=== PATIENT | female | born 1990 | race Caucasian/White ===

== ENCOUNTER 2016-08-11 12:17 | Outpatient (CLI) | payer MEDICAID ==
--- NOTE | 2016-08-11 13:38 | Non Stress Test Report ---
Non Stress Test Datetime Report Generated by CPN: 08/11/2016 13:38 INDICATION Indication for Study: Ordered by Provider Indication for Study (NST) Other: Repeat NST MONITORING Monitor Explained: Monitor Explained; Test Explained; Patient Verbalized Understanding Time on Monitor: 08/11/2016 12:31 Time off Monitor: 08/11/2016 13:24 NST Duration: 53 NST INTERVENTIONS NST Interventions: PO Hydration; Reposition Patient Physician Notified NST: J .Corbett CNM BABY A: [id number] BABY A Movement : Present Contraction Frequency : x1 FHR Baseline : 140 Accelerations : 15X15 Decelerations : None Variability : Moderate 6-25bpm NST Review: Meets Criteria for Reactive NST NST Review and Verified By : Kristine Kerns RN NST Results: Reactive NST REPORT Report Trigger: Send Report
== END 2016-08-11 13:35 | disposition home or self-care (01) ==
LOC: LC 12:17
PROVIDERS: ATTEND Obstetrics & Gynecology
PROC: 4A1HXCZ Monitoring of Products of Conception, Cardiac Rate, External Approach (ICD-10-PCS; principal; 2016-08-11)
DX: O47.03 False labor before 37 completed weeks of gestation, third trimester (principal); Z3A.34 34 weeks gestation of pregnancy
CPT/HCPCS: 59025

== ENCOUNTER 2016-08-22 16:58 | Outpatient (CLI) | payer MEDICAID ==
--- NOTE | 2016-08-22 17:54 | Non Stress Test Report ---
Non Stress Test Datetime Report Generated by CPN: 08/22/2016 17:54 DEMOGRAPHIC EGA NST: 35.5 INDICATION Indication for Study: Ordered by Provider; Other MONITORING Monitor Explained: Monitor Explained; Test Explained; Patient Verbalized Understanding Time on Monitor: 08/22/2016 17:12 NST INTERVENTIONS NST Interventions: PO Hydration; Reposition Patient Physician Notified NST: Dr. Santoro BABY A: [id number] BABY A Movement : Present Contraction Frequency : irregular FHR Baseline : 140 Accelerations : 15X15 Decelerations : None Variability : Moderate 6-25bpm NST Review: Meets Criteria for Reactive NST NST Review and Verified By : Luis De Anda RNC NST Results: Reactive NST REPORT Report Trigger: Send Report
== END 2016-08-22 17:53 | disposition home or self-care (01) ==
LOC: LC 16:58
PROVIDERS: ATTEND Student in an Organized Health Care Education/Training Program
PROC: 4A1HXCZ Monitoring of Products of Conception, Cardiac Rate, External Approach (ICD-10-PCS; principal; 2016-08-22)
DX: O47.03 False labor before 37 completed weeks of gestation, third trimester (principal); Z3A.35 35 weeks gestation of pregnancy
CPT/HCPCS: 59025

== ENCOUNTER 2016-08-26 12:23 | Outpatient (CLI) | payer MEDICAID ==
--- NOTE | 2016-08-26 13:55 | Non Stress Test Report ---
Non Stress Test Datetime Report Generated by CPN: 08/26/2016 13:55 DEMOGRAPHIC EGA NST: 36.2 INDICATION Indication for Study: Other Indication for Study (NST) Other: Repeat NST VITAL SIGNS Temperature - NST: 98.1 Pulse - NST: 67 RESP - NST: 19 NBPSYS NST: 132 NBPDIA NST: 63 MONITORING Monitor Explained: Monitor Explained; Test Explained; Patient Verbalized Understanding Time on Monitor: 08/26/2016 13:00 Time off Monitor: 08/26/2016 13:37 NST Duration: 37 NST INTERVENTIONS NST Interventions: None Physician Notified NST: H Frantz, CNM BABY A Movement : Present Contraction Frequency : 2-15 FHR Baseline : 135 Accelerations : 15X15 Decelerations : None Variability : Moderate 6-25bpm NST Review: Meets Criteria for Reactive NST NST Review and Verified By : Talita Zuniga RNC NST Results: Reactive NST REPORT Report Trigger: Send Report
--- NOTE | 2016-08-26 14:01 | L&D Flow Sheet ---
LD Flowsheet Datetime Report Generated by CPN: 08/26/2016 14:00 Datetime: 08/26/2016 13:35 Pain Scale: 2 (Brenda Scott, CUATE) Pain Presence: Intermittent (Brenda Scott, RN) Pain Type: Contraction (Brendabuffy Scott, RN) Pain Location: Abdomen; Back (Brenda Scott, CUATE) Pain Relief Measures: Comfort Measures (Brenda Scott, CUATE) Pain Coping: Talking Through Contractions; Breathing Through Contractions (Brendabuffy Scott, RN) LaborFlag: OB Triage (QS system process) Datetime: 08/26/2016 13:30 Monitor Mode: External; Palpation (Brenda Taynton, RN) Frequency (min): 2-15 (Brenda Taynton, RN) Quality: Mild/Moderate (Brenda Taynton, RN) Duration (sec): 60-120 (Brenda Taynton, RN) Resting Tone (Palpate): Relaxed (Brenda Taynton, RN) Monitor Mode: External US (Brenda Taynton, RN) FHR Baseline Rate : 150 (Brenda Taynton, RN) Variability: Moderate 6-25 bpm (Brenda Taynton, RN) Accelerations: 15X15 (Brenda Taynton, RN) Decelerations: None (Brenda Taynton, RN) Datetime: 08/26/2016 13:27 NBP Sys/Sandrine/Mean (mmHg): 132 (QS system process) : 63 (QS system process) : 90 (QS system process) Pulse: 67 (QS system process) LaborFlag: OB Triage (QS system process) Datetime: 08/26/2016 13:06 NBP Sys/Sandrine/Mean (mmHg): 121 (QS system process) : 78 (QS system process) : 94 (QS system process) Pulse: 76 (QS system process) LaborFlag: OB Triage (QS system process) Datetime: 08/26/2016 13:00 Monitor Mode: External; Palpation (Brenda Taynton, RN) Frequency (min): x2 (Brenda Taynton, RN) Quality: Mild/Moderate (Brenda Taynton, RN) Duration (sec): 70-100 (Brenda Taynton, RN) Resting Tone (Palpate): Relaxed (Brenda Taynton, RN) Monitor Mode: External US (Brenda Taynton, RN) FHR Baseline Rate : 150 (Brenda Taynton, RN) Variability: Moderate 6-25 bpm (Brenda Taynton, RN) Accelerations: None (Brenda Taynton, RN) Decelerations: None (Brenda Taynton, RN) Datetime: 08/26/2016 12:50 Pain Scale: 1 (Brenda Taynton, RN) Pain Presence: Intermittent (Brenda Scott RN) Pain Type: Contraction (Brenda Scott RN) Pain Location: Abdomen; Back (Brenda Scott RN) Pain Relief Measures: Comfort Measures (Brenda Scott RN) Pain Coping: Talking Through Contractions; Breathing Through Contractions (Brenda Scott RN) Vaginal Bleeding: None (Brenda Scott RN) Level of Consciousness: Fully Conscious (Brenda Scott RN) DTR's/Clonus: DTRs 2+; No Clonus (Brenda Scott RN) Headache: Denies (Brenda Scott RN) Breath Sounds, Left: Clear and Equal (Brenda Scott RN) Breath Sounds, Right: Clear and Equal (Brenda Scott RN) Nausea/Vomiting: Denies (Brenda Scott RN) RUQ Epigastric Pain: Denies (Brenda Scott RN) Instructional Method: Demo; Verbal; Written; Patient Instructed; Verbalized Understanding (Brenda Scott RN) Plan of Care: Plan of Care Discussed (Brenda Scott RN) Unit Routine: [place] to Room; Call Lua; Bed (Brenda Scott RN) Related: Common Discomforts of (Brenda Scott RN) LaborFlag: OB Triage (QS system process) Datetime: 08/26/2016 12:46 NBP Sys/Sandrine/Mean (mmHg): 111 (QS system process) : 74 (QS system process) : 88 (QS system process) Pulse: 73 (QS system process) LaborFlag: OB Triage (QS system process)
== END 2016-08-26 14:10 | disposition home or self-care (01) ==
LOC: LC 12:23
PROVIDERS: ATTEND Obstetrics & Gynecology
PROC: 4A1HXCZ Monitoring of Products of Conception, Cardiac Rate, External Approach (ICD-10-PCS; principal; 2016-08-26)
DX: O47.03 False labor before 37 completed weeks of gestation, third trimester (principal); Z3A.36 36 weeks gestation of pregnancy
CPT/HCPCS: 59025

== ENCOUNTER 2016-09-02 15:01 | Outpatient (CLI) | payer MEDICAID ==
--- NOTE | 2016-09-02 15:54 | Non Stress Test Report ---
Non Stress Test Datetime Report Generated by CPN: 09/02/2016 15:54 DEMOGRAPHIC EGA NST: 37.2 INDICATION Indication for Study: Substance Abuse MONITORING Monitor Explained: Monitor Explained; Test Explained Time on Monitor: 09/02/2016 15:15 Time off Monitor: 09/02/2016 15:51 NST Duration: 36 NST INTERVENTIONS NST Interventions: PO Hydration; Reposition Patient Physician Notified NST: A Emmel CNM BABY A: [id number] BABY A Movement : Present Contraction Frequency : occassional FHR Baseline : 135 Accelerations : 15X15 Decelerations : None Variability : Moderate 6-25bpm NST Review: Meets Criteria for Reactive NST NST Review and Verified By : Lala CRUZ NST Results: Reactive NST REPORT Report Trigger: Send Report
--- NOTE | 2016-09-02 16:00 | L&D Flow Sheet ---
LD Flowsheet Datetime Report Generated by CPN: 09/02/2016 16:00 Datetime: 09/02/2016 15:17 Vital Signs NBP Sys/Sandrine/Mean (mmHg): 130 (QS system process) : 69 (QS system process) : 93 (QS system process) Pulse: 92 (QS system process) Communication LaborFlag: OB Triage (QS system process)
== END 2016-09-02 16:00 | disposition home or self-care (01) ==
LOC: LC 15:01
PROVIDERS: ATTEND Obstetrics & Gynecology
PROC: 4A1HXCZ Monitoring of Products of Conception, Cardiac Rate, External Approach (ICD-10-PCS; principal; 2016-09-02)
DX: O99.323 Drug use complicating pregnancy, third trimester (principal); Z3A.37 37 weeks gestation of pregnancy
CPT/HCPCS: 59025

== ENCOUNTER 2016-09-06 14:33 | Outpatient (CLI) | payer MEDICAID ==
--- NOTE | 2016-09-06 15:35 | Non Stress Test Report ---
Non Stress Test Datetime Report Generated by CPN: 09/06/2016 15:34 DEMOGRAPHIC Test Number: 5 EGA NST: 37.6 INDICATION Indication for Study: Ordered by Provider MONITORING Monitor Explained: Monitor Explained; Test Explained; Patient Verbalized Understanding Time on Monitor: 09/06/2016 14:43 Time off Monitor: 09/06/2016 15:24 NST Duration: 41 NST INTERVENTIONS NST Interventions: PO Hydration; Reposition Patient Physician Notified NST: P. Lin, CNM BABY A Movement : Present Contraction Frequency : Occasional FHR Baseline : 125 Accelerations : 15X15 Decelerations : None Variability : Moderate 6-25bpm NST Review: Meets Criteria for Reactive NST NST Review and Verified By : Luis De Anda RNC NST Results: Reactive NST REPORT Report Trigger: Send Report
== END 2016-09-06 15:33 | disposition home or self-care (01) ==
LOC: LC 14:33
PROVIDERS: ATTEND Obstetrics & Gynecology
DX: Z34.93 Encounter for supervision of normal pregnancy, unspecified, third trimester (principal); Z3A.37 37 weeks gestation of pregnancy
CPT/HCPCS: 59025

== ENCOUNTER 2016-09-16 14:51 | Outpatient (CLI) | payer MEDICAID ==
--- NOTE | 2016-09-16 15:49 | Non Stress Test Report ---
Non Stress Test Datetime Report Generated by CPN: 09/16/2016 15:48 DEMOGRAPHIC EGA NST: 39.2 INDICATION Indication for Study: Ordered by Provider Indication for Study (NST) Other: Repeat MONITORING Monitor Explained: Monitor Explained; Test Explained; Patient Verbalized Understanding Time on Monitor: 09/16/2016 15:08 Time off Monitor: 09/16/2016 15:42 NST Duration: 34 NST INTERVENTIONS NST Interventions: PO Hydration Physician Notified NST: A. Emmel CNM BABY A: [id number] BABY A Movement : Present Accelerations : 15X15 Decelerations : None Variability : Moderate 6-25bpm NST Review: Meets Criteria for Reactive NST NST Review and Verified By : Deann Gayle, RN NST Results: Reactive NST REPORT Report Trigger: Send Report
== END 2016-09-16 15:57 | disposition home or self-care (01) ==
LOC: LC 14:51
PROVIDERS: ATTEND Student in an Organized Health Care Education/Training Program
PROC: 4A1HXCZ Monitoring of Products of Conception, Cardiac Rate, External Approach (ICD-10-PCS; principal; 2016-09-16)
DX: O47.1 False labor at or after 37 completed weeks of gestation (principal); Z3A.39 39 weeks gestation of pregnancy
CPT/HCPCS: 59025

== ENCOUNTER 2016-09-19 12:39 | Outpatient (CLI) | payer MEDICAID ==
[2016-09-19 13:27] LABS: APPEARANCE,URINE CLOUDY; BILIRUBIN,URINE NEGATIVE (NEGATIVE); GLUCOSE, URINE NEGATIVE (NEGATIVE); KETONES,URINE NEGATIVE (NEGATIVE); LEUKOCYTE ESTERASE,URINE LARGE (NEGATIVE); NITRITE,URINE NEGATIVE (NEGATIVE); PROTEIN,URINE 30 mg/dL (NEGATIVE); URINE SPECIFIC GRAVITY 1.024; UROBILINOGEN,URINE NEGATIVE mg/dL (<2.0)
--- NOTE | 2016-09-19 14:00 | L&D Flow Sheet ---
LD Flowsheet Datetime Report Generated by CPN: 09/19/2016 14:00 Datetime: 09/19/2016 13:40 NBP Sys/Sandrine/Mean (mmHg): 124 (QS system process) : 71 (QS system process) : 91 (QS system process) Pulse: 67 (QS system process) LaborFlag: OB Triage (QS system process) Datetime: 09/19/2016 13:09 NBP Sys/Sandrine/Mean (mmHg): 134 (QS system process) : 75 (QS system process) : 99 (QS system process) Pulse: 77 (QS system process) Pain Scale: 3 (Wendy Romero, CUATE) Pain Presence: Intermittent (Wendy Romero, CUATE) Pain Type: Contraction; Pressure (Annotations: CONSTANT PRESSURE) (Wendy Romero, CUATE) Pain Location: Abdomen; Back (Wendy Romero, RN) Pain Goal: 1 (Wendy Romero, CUATE) Pain Coping: Breathing Through Contractions (Wendy Romero, CUATE) Vaginal Bleeding: None (Wendy Romero, CUATE) LaborFlag: OB Triage (QS system process)
[2016-09-19 14:01] LABS: URINE BARBITURATES SCREEN NEGATIVE; URINE OPIATES LOW NEGATIVE; URINE PHENCYCLIDINE SCREEN NEGATIVE
[2016-09-19 14:08] LABS: URINE METHADONE SCREEN UNCONFIRMED POSITIVE
--- NOTE | 2016-09-19 16:00 | L&D Flow Sheet ---
LD Flowsheet Datetime Report Generated by CPN: 09/19/2016 16:00 Datetime: 09/19/2016 15:39 NBP Sys/Sandrine/Mean (mmHg): 131 (QS system process) : 79 (QS system process) : 100 (QS system process) Pulse: 65 (QS system process) LaborFlag: Antepartum (QS system process) Datetime: 09/19/2016 15:15 Stage of : Antepartum (Wendy Romero, RN) Respirations: 18 (Wendy Romreo RN) Monitor Mode: External (Wendy Romero RN) Frequency (min): IRREG (Wendy Romero, CUATE) Quality: Mild (Wendy Romero RN) Duration (sec): 55-70 (Wendy Romero, CUATE) Resting Tone (Palpate): Relaxed (Wendy Romero, CUATE) Monitor Mode: External US (Wendy Romero RN) FHR Baseline Rate : 140 (Wendy Romero RN) FHR Baseline Changes: No Baseline Change (Wendy Romero, CUATE) Variability: Moderate 6-25 bpm (Wendy Romero, CUATE) Accelerations: 15X15 (Wendy Romero, CUATE) Decelerations: None (Wendy Romero, CUATE) Pain Relief Measures: Comfort Measures (Wendy Romero, CUATE) Pain Coping: Talking Through Contractions; Breathing Through Contractions (Wendy Romero, CUATE) Patient Position/Activity: Right Tilt; Low Fowlers (Wendy Romero, CUATE) Comfort Measures: Family Support (Wendy Romero, CUATE) Communication: RN Reviewed Strip (Wendy Romero RN) LaborFlag: Antepartum (QS system process) Datetime: 09/19/2016 15:09 NBP Sys/Sandrine/Mean (mmHg): 130 (QS system process) : 79 (QS system process) : 97 (QS system process) Pulse: 77 (QS system process) LaborFlag: OB Triage (QS system process) Datetime: 09/19/2016 14:52 Stage of : OB Triage (Wendy Romero RN) Provider Reviewed Strip: Yes (Wendy Romero RN) Communication: Report Given to @ Natan HENDRICKS CNM (Wendy Romero, CUATE) Notification Reason: Status; Labor Status; Uterine Activity (Wendy Romero RN) Datetime: 09/19/2016 14:48 Dilatation (cm): 4.0 (Wendy Romero RN) Effacement (%): 80 (Wendy Romero, RN) Station: -3 (Wendy Romero, RN) Exam by: KORY ROMERO RN (Wendy Romero, RN) Vaginal Bleeding: None (Wendy Romero RN) Cervix, Consistency: Soft (Wendy Romero, RN) Cervix, Position: Posterior (Wendy Romero, RN) Procedures: Sterile Vag Exam (Wendy Romero, CUATE) Communication: RN at Bedside; RN Reviewed Strip (Wendy Romero RN) Datetime: 09/19/2016 14:44 Stage of : OB Triage (Wendy Romero RN) Respirations: 18 (Wendy Romero RN) Monitor Mode: External (Wendy Romero RN) Monitor Interventions for UA: [place] Adjusted (Wendy Romero RN) Frequency (min): 5-10 (Wendy Romero RN) Quality: Mild (Wendy Romero RN) Duration (sec): 55-70 (Wendy Romero, CUATE) Resting Tone (Palpate): Relaxed (Wendy Romero RN) Monitor Mode: External US (Wendy Romero RN) Monitor Interventions for FHR: Ultrasound Adjusted (Wendy Romero RN) FHR Baseline Rate : 130 (Wendy Romero RN) FHR Baseline Changes: No Baseline Change (Wendy Romero RN) Variability: Moderate 6-25 bpm (Wendy Romero RN) Decelerations: Prolonged (Wendy Romero, CUATE) Actions for Decelerations: Side to Side; Sterile Vaginal Exam (Wendy Romero RN) Pain Scale: 3 (Wendy Romero RN) Pain Presence: Intermittent (Wendy Romero RN) Pain Type: Contraction; Pressure (Wendy Romero RN) Pain Location: Abdomen; Back (Wendy Romero RN) Pain Relief Measures: Comfort Measures (Wendy Romero RN) Pain Coping: Breathing Through Contractions (Wendy Romero RN) Patient Position/Activity: Right Lateral; Low Fowlers (Wendy Romero RN) Comfort Measures: Family Support (Wendy Romero RN) Communication: RN at Bedside; RN Reviewed Strip (Wendy Romero RN) LaborFlag: OB Triage (QS system process) Datetime: 09/19/2016 14:39 NBP Sys/Sandrine/Mean (mmHg): 131 (QS system process) : 75 (QS system process) : 97 (QS system process) Pulse: 82 (QS system process) LaborFlag: Antepartum (QS system process) Datetime: 09/19/2016 14:15 Stage of : Antepartum (Wendy Romero RN) Respirations: 18 (Wendy Romero RN) Monitor Mode: External (Wendy Romero RN) Frequency (min): IRREG (Wendy Romero RN) Quality: Mild (Wendy Romero RN) Duration (sec): 50-65 (Wendy Romero RN) Resting Tone (Palpate): Relaxed (Wendy Romero, CUATE) Monitor Mode: External US (Wendy Romero RN) FHR Baseline Rate : 135 (Wendy Romero RN) FHR Baseline Changes: No Baseline Change (Wendy Romero RN) Variability: Moderate 6-25 bpm (Wendy Romero RN) Accelerations: None (Wendy Romero RN) Decelerations: None (Wendy Romero RN) Pain Relief Measures: Comfort Measures (Wendy Romero RN) Pain Coping: Talking Through Contractions; Breathing Through Contractions (Wendy Romero RN) Patient Position/Activity: Left Tilt; Low Fowlers (Wendy Romero, CUATE) Comfort Measures: Family Support (Wendy Romero RN) Communication: RN at Bedside; RN Reviewed Strip (Wendy Romero RN) LaborFlag: Antepartum (QS system process) Datetime: 09/19/2016 14:11 NBP Sys/Sandrine/Mean (mmHg): 100 (QS system process) : 70 (QS system process) : 81 (QS system process) Pulse: 76 (QS system process) LaborFlag: Antepartum (QS system process)
[2016-09-19] MEDS ORDERED: ONDANSETRON 4 MG TAB.RAPDIS ONE (16:08)
[2016-09-19] MEDS ORDERED: ONDANSETRON 4 MG TAB.RAPDIS PO ONE (16:08)
[2016-09-19] MEDS ORDERED: HYDROXYZINE PAMOATE 50 MG CAPSULE PO ONE (16:08)
[2016-09-19] MEDS ORDERED: HYDROXYZINE PAMOATE 50 MG CAPSULE ONE (17:12)
== END 2016-09-19 17:18 | disposition home or self-care (01) ==
LOC: LC 12:39
PROVIDERS: ATTEND Obstetrics & Gynecology
PROC: 4A1HXCZ Monitoring of Products of Conception, Cardiac Rate, External Approach (ICD-10-PCS; principal; 2016-09-19)
DX: O47.1 False labor at or after 37 completed weeks of gestation (principal); Z3A.39 39 weeks gestation of pregnancy
CPT/HCPCS: 59025; 81005; 80307; J3490; S0119

== ENCOUNTER 2016-09-21 07:24 | Inpatient (IN) | payer MEDICAID ==
--- NOTE | 2016-09-21 08:00 | L&D Flow Sheet ---
LD Flowsheet Datetime Report Generated by CPN: 09/21/2016 08:00 Datetime: 09/21/2016 07:52 Monitor Interventions for UA: [place] Adjusted (Prince Abel, RN) Datetime: 09/21/2016 07:51 Communication Comments: [place] PIPE TESTER at bedside to answer pt questions (Prince Abel, RN) Datetime: 09/21/2016 07:45 Frequency (min): 5min (Prince Roman RN) Pain Scale: 4 (Prince Roman RN) Pain Presence: Intermittent (Prince Roman RN) Pain Type: Contraction (Prince Roman RN) Pain Location: Abdomen (Prince Roman RN) Pain Relief Measures: Comfort Measures (Prince Roman RN) Pain Coping: Breathing Through Contractions (Prince Roman RN) Vaginal Bleeding: None (Prince Roman RN) Dilatation (cm): 3-4 cms (Prince Roman RN) Effacement: >80_ effaced (Prince Roman RN) Station: minus 1 to 0 (Prince Roman RN) Consistency: Soft (Prince Roman RN) Position: Midposition (Prince Roman RN) Total Pike's Score: 10 (QS system process) : 9-14 = Usually no failure for induction (QS system process) Level of Consciousness: Fully Conscious (Prince Roman RN) DTR's/Clonus: DTRs 2+; No Clonus (Prince Roman RN) Headache: Denies (Prince Roman RN) Breath Sounds, Left: Clear and Equal (Prince Roman RN) Breath Sounds, Right: Clear and Equal (Prince Roman RN) Nausea/Vomiting: Denies (Prince Roman RN) RUQ Epigastric Pain: Denies (Prince Roman RN) Patient Position/Activity: Left Tilt (Prince Roman RN) Comfort Measures: Breathing/Relaxation (Prince Roman RN) I/O Interventions: Clear Liquids Given; Up to BR (Prince Roman RN) Instructional Method: Demo; Verbal; Patient Instructed; Family/Support Person Instructed; Verbalized Understanding (Prince Roman RN) Plan of Care: Plan of Care Discussed; Labor (Prince Roman RN) Unit Routine: [place] to Room; Call Lua; Bed; Visiting Policy; Waiting Areas; Infant Security; Phone/Cell Phone Use; Photography; Unit Personnel; Handwashing; Flu/Illness Precautions; Monitoring; IV Pumps; Safety/Fall Risk Prevention; Diet/Nutrition Services; Bathroom Privileges; Routine Time Outs; Medications (Prince Roman RN) Labor/Induction: Labor Stages (Prince Roman RN) Pain Management: Pain Scale/Goals; Comfort Measures (Prince Roman RN) Related: Common Discomforts of ; Maternal Physical Changes; Maternal Emotional Changes; Nutrition; Hydration; Activity and Rest (Prince Roman RN) LaborFlag: Antepartum (QS system process) Datetime: 09/21/2016 07:44 I/O Interventions: Popsicle (Prince Roman RN) Datetime: 09/21/2016 07:42 Dilatation (cm): 4.0 (Prince Roman RN) Effacement (%): 100 (Prince Roman RN) Station: -1 (Prince Roman RN) Exam by: Michael Roman RN (Prince Roman RN) Vaginal Bleeding: None (Prince Roman RN) Cervix, Consistency: Soft (Prince Roman RN) Cervix, Position: Midposition (Prince Roman RN) Datetime: 09/21/2016 07:39 NBP Sys/Sandrine/Mean (mmHg): 133 (QS system process) : 86 (QS system process) : 105 (QS system process) Pulse: 86 (QS system process) LaborFlag: Antepartum (QS system process)
--- NOTE | 2016-09-21 08:19 | Non Stress Test Report ---
Non Stress Test Datetime Report Generated by CPN: 09/21/2016 08:19 DEMOGRAPHIC EGA NST: 40.0 EGA NST: 39.5 INDICATION Indication for Study: Ordered by Provider Indication for Study: Other Indication for Study (NST) Other: LABOR CHECK MONITORING Monitor Explained: Monitor Explained; Test Explained; Patient Verbalized Understanding Monitor Explained: Monitor Explained; Test Explained; Patient Verbalized Understanding Time on Monitor: 09/21/2016 07:38 Time on Monitor: 09/19/2016 13:09 Time off Monitor: 09/21/2016 08:10 NST Duration: 32 NST INTERVENTIONS NST Interventions: PO Hydration NST Interventions: Reposition Patient NST Interventions Other: PROLONGED DECEL X 1; RESOLVED WITH POSITION CHANGE Physician Notified NST: HURD Physician Notified NST: DR ANAT REVIEWED STRIP BABY A Movement : Present Movement : Present Contraction Frequency : 5-6 Contraction Frequency : IRREG FHR Baseline : 135 FHR Baseline : 135 Accelerations : 15X15 Accelerations : 15X15 Decelerations : None Decelerations : Prolonged Variability : Moderate 6-25bpm Variability : Moderate 6-25bpm NST Review: Meets Criteria for Reactive NST NST Review: Meets Criteria for Reactive NST NST Review and Verified By : CUATE VarelaT Results: Reactive NST Results: Reactive NST REPORT Report Trigger: Send Report
[2016-09-21 08:31] LABS: APPEARANCE,URINE SLIGHTLY-CLOUDY; BILIRUBIN,URINE NEGATIVE (NEGATIVE); GLUCOSE, URINE NEGATIVE (NEGATIVE); KETONES,URINE NEGATIVE (NEGATIVE); LEUKOCYTE ESTERASE,URINE LARGE (NEGATIVE); NITRITE,URINE NEGATIVE (NEGATIVE); PROTEIN,URINE NEGATIVE (NEGATIVE); URINE SPECIFIC GRAVITY 1.005; UROBILINOGEN,URINE NEGATIVE mg/dL (<2.0)
[2016-09-21 08:47] LABS: URINE BARBITURATES SCREEN NEGATIVE; URINE OPIATES LOW NEGATIVE; URINE PHENCYCLIDINE SCREEN NEGATIVE
[2016-09-21] MEDS ORDERED: RINGERS SOLUTION,LACTATED 1,000 ML IV ONE (08:49)
[2016-09-21] MEDS ORDERED: RINGERS SOLUTION,LACTATED 1,000 ML IV PRN (08:49)
[2016-09-21 08:54] LABS: URINE METHADONE SCREEN UNCONFIRMED POSITIVE
--- NOTE | 2016-09-21 09:10 | Operative Report ---
Operative Report DATE OF SURGERY: 09/21/16 PREOPERATIVE DIAGNOSIS: Repeat to prevent risk of uterine rupture POSTOPERATIVE DIAGNOSIS: Same OPERATION: Repeat via low transverse uterine incision SURGEON: YAIR HURD ANESTHESIA: Epidural TISSUE REMOVED OR ALTERED: Placenta COMPLICATIONS: None ESTIMATED BLOOD LOSS: 2 50 mL INTRAOPERATIVE FINDINGS: Viable male 7 lbs. 10 oz. Apgars 8 and 9 PROCEDURE: Patient was taken to the OR and placed in supine position after her spinal anesthesia. She is prepared and draped in sterile fashion. Delgado was placed for drainage of the bladder. Low transverse incision was made and carried down the level of the fascia. The fascial incision was made with knife and extended bilaterally with curved Jenkins scissors. The fascia was off the rectus muscles using sharp and blunt dissection. The rectus muscles are in the midline. The peritoneum was entered without incident. Bladder blade was placed in uterine segment was identified. A low transverse incision was made creating a bladder flap. Bladder blade was placed low transverse uterine incision was made with the knife and extended with fingertips. The baby was delivered with some fundal pressure. Mouth and nose were suctioned free. The cord is doubly clamped and cut. Baby is passed off to the swimming pool cleaner in attendance. The placenta was manually extracted with trailing membranes. The uterus was externalized wrapped in a moist lap sponge. Uterine contents wiped free. Uterus was closed with a running locking layer of 0 chromic suture using the second layer to imbricate the first completing a double layer closure of the uterus. The serosa was closed with a running 2-0 chromic stitch. The pelvis was irrigated and suctioned free of fluid the uterus was replaced in the abdomen. The abdominal wall peritoneum was closed with running 2-0 chromic stitch. Fascia was closed with a running 0 Vicryl in 2 segments. Jade's layer was brought together with 0 plain gut stitch and the skin was closed with running subcuticular 4-0 undyed Vicryl stitch. The wound was dressed mother and baby did well.
[2016-09-21] MEDS ORDERED: EPHEDRINE SULFATE INJ 50 MG/1 ML AMPULE ONE (09:30)
[2016-09-21] MEDS ORDERED: FENTANYL/BUPIVACAINE/NS/PF 0 MCG/0 ML RTUINJ EPI ONE (09:30)
[2016-09-21] MEDS ORDERED: LIDOCAINE 1% INJ-PF (10 MG/ML) 30 ML SDV ONE (09:30)
[2016-09-21] MEDS ORDERED: MISOPROSTOL 0.2 MG TABLET ONE (09:30)
[2016-09-21] MEDS ORDERED: BUPIVACAINE HCL 0.25 % INJ/PF (2.5 MG/1 ML) 30 ML VIAL ONE (09:31)
[2016-09-21] MEDS ORDERED: OXYTOCIN/NORMAL SALINE 20 UNIT/1,000 ML RTUINJ ONE (09:31)
[2016-09-21 09:44] LABS: ABSOLUTE LYMPHOCYTES (AUTO) 1.8 10^3/uL (0.5-4.7); ABSOLUTE NEUT (AUTO) 8.7 10^3/uL (1.7-8.2); BASOPHILS % (AUTO) 0.3 % (0-2); EOSINOPHILS % (AUTO) 0.4 % (0-6); HEMATOCRIT 33.5 % (36.0-47.0); HEMOGLOBIN 10.8 g/dL (12.0-15.5); HGB HCT DIFFERENCE -1.1; LYMPHOCYTES % (AUTO) 15.7 % (13-45); MEAN CORPUSCULAR HEMOGLOBIN 25.2 pg (27.0-33.4); MEAN CORPUSCULAR HGB CONC 32.4 g/dL (32.0-36.0); MEAN CORPUSCULAR VOLUME 78 fl (80-97); MONOCYTES % (AUTO) 8.8 % (3-13); RED BLOOD COUNT 4.31 10^6/uL (3.72-5.28); RED CELL DISTRIBUTION WIDTH 14.2 % (11.5-14.0); SEGMENTED NEUTROPHILS % (AUTO) 74.8 % (42-78); WHITE BLOOD COUNT 11.6 10^3/uL (4.0-10.5)
--- NOTE | 2016-09-21 10:00 | L&D Flow Sheet ---
LD Flowsheet Datetime Report Generated by CPN: 09/21/2016 10:00 Datetime: 09/21/2016 09:54 Dilatation (cm): 9.0 (Prince Abel, RN) Effacement (%): 100 (Prince Abel, RN) Station: 1 (Prince Abel, RN) Exam by: Lala Bah CNM (Prince Abel, RN) Communication Comments: Lala Bah CNLeia at bedside to assess pt (Prince Abel, RN) Datetime: 09/21/2016 09:51 Pain Scale: 5 (Prince Roman RN) Pain Coping: Requesting Pain Medication or Epidural (Prince Roman RN) Dilatation (cm): 8.0 (Prince Roman RN) Effacement (%): 100 (Prince Roman RN) Station: 1 (Prince Roman RN) Exam by: Michael Roman RN (Prince Roman RN) Membrane Status: Ruptured (Prince Roman RN) Membranes Ruptured Date/Time: 09/21/2016 09:51 (Prince Roman RN) Membranes Rupture Method: Spontaneous (Prince Roman RN) Amniotic Fluid Color: Clear (Prince Roman RN) Amniotic Fluid Amount: Moderate (Prince Roman RN) Amniotic Fluid Odor: Normal (Prince Roman RN) Vaginal Bleeding: None (Prince Roman RN) Strip Reviewed by: Lala Bah CNM (Prince Roman RN) Anesthesia Comments: Labs back; Dr Alcala called for epidural states he will be up in 20 min. (Prince Roman RN) Provider Notified (Name): Lala Bah CNM (Prince Roman RN) Communication Comments: provider notified of ROM, ve (Prince Roman RN) LaborFlag: Antepartum (QS system process) Datetime: 09/21/2016 09:34 Communication Comments: Awaiting labs for epidural. (Prince Roman RN) Datetime: 09/21/2016 09:24 Respirations: 16 (Prince Roman RN) Pain Scale: 5 (Prince Roman RN) Pain Presence: Intermittent (Prince Roman RN) Pain Relief Measures: Comfort Measures (Prince Roman RN) Pain Coping: Breathing Through Contractions; Requesting Pain Medication or Epidural (Prince Roman RN) Dilatation (cm): 6.0 (Prince Roman RN) Effacement (%): 100 (Prince Roman RN) Station: 0 (Prince Roman RN) Exam by: Lala Bah CNM (Prince Roman RN) Vaginal Exam Comments: provider states pt may have epidural now. (Prince Roman RN) Level of Consciousness: Fully Conscious (Prince Roman RN) Headache: Denies (Prince Roman RN) Nausea/Vomiting: Denies (Prince Roman RN) RUQ Epigastric Pain: Denies (Prince Roman RN) LaborFlag: Antepartum (QS system process) Datetime: 09/21/2016 09:17 NBP Sys/Sandrine/Mean (mmHg): 125 (QS system process) : 87 (QS system process) : 102 (QS system process) Pulse: 67 (QS system process) I/O Interventions: Up to BR (Prince Roman RN) LaborFlag: Antepartum (QS system process) Datetime: 09/21/2016 09:03 IV/Blood Work: Labs Drawn (Prince Roman RN) Datetime: 09/21/2016 09:02 IV/Blood Work: IV Started; IV Bolus Started (Prince Roman RN) Patient Care Comments: LR bolus per order; 18G L Forearm good blood return, site wnl, pt tolerated well. (Prince Roman RN) Datetime: 09/21/2016 09:00 Monitor Mode: External; Palpation (Prince Roman RN) Frequency (min): 6-8 (Prince Roman RN) Quality: Moderate (Prince Roman RN) Duration (sec): 90-110 (Prince Roman RN) Duration Criteria: Less than Two 120 Second Contractions (Prince Roman RN) Pattern: Normal: <= 5 Contractions in 10 Minutes (Prince Roman RN) Resting Tone (Palpate): Relaxed (Prince Roman RN) Monitor Mode: External US (Prince Roman RN) FHR Baseline Rate : 135 (Prince Roman RN) Variability: Moderate 6-25 bpm (Prince Roman RN) Accelerations: 10X10 (Prince Roman RN) Decelerations: None (Prince Roman RN) Communication: RN at Bedside; RN Reviewed Strip (Prince Roman RN) Datetime: 09/21/2016 08:40 Instructional Method: Verbal; Patient Instructed; Family/Support Person Instructed; Verbalized Understanding (Prince Roman RN) Plan of Care: Plan of Care Discussed; Vaginal Delivery; Labor (Prince Roman RN) Labor/Induction: Labor Stages (NOLBERTO K[place] Pain Management: Epidural; PRN Medications; Pain Scale/Goals; Comfort Measures (Prince Roman RN) Communication Comments: Lala Bah CNM states to admit pt; them ambulate off monitors (Prince Roman RN) Datetime: 09/21/2016 08:37 Communication Comments: Lala Bah CNM at bedside to assess patient (Prince Roman RN) Datetime: 09/21/2016 08:30 Monitor Mode: External; Palpation (Prince Roman RN) Frequency (min): 6-7 (Prince Roman RN) Quality: Moderate to Strong (Prince Roman RN) Duration (sec): 70-80 (Prince Roman RN) Duration Criteria: Less than Two 120 Second Contractions (Prince Roman RN) Pattern: Normal: <= 5 Contractions in 10 Minutes (Prince Roman RN) Resting Tone (Palpate): Relaxed (Prince Roman RN) Monitor Mode: External US (Prince Abel, RN) FHR Baseline Rate : 135 (Prince Abel, RN) Variability: Moderate 6-25 bpm (Prince Abel, RN) Accelerations: 10X10 (Prince Abel, RN) Decelerations: Early (Prince Abel, RN) Communication: RN at Bedside; RN Reviewed Strip (Prince Abel, RN) Datetime: 09/21/2016 08:27 Dilatation (cm): 4.0 (Prince Pateleet, RN) Effacement (%): 100 (Prince Pateleet, RN) Station: 0 (Prince Pateleet, RN) Exam by: Michael Roman RN (Prince Pateleet, RN) Vaginal Bleeding: None (Prince Pateleet, RN) Cervix, Consistency: Soft (Prince Pateleet, RN) Cervix, Position: Midposition (Prince [place], RN) Datetime: 09/21/2016 08:00 Monitor Mode: External; Palpation (Prince Pateleet, RN) Frequency (min): 5-6 (rPince Roman RN) Quality: Moderate (Prince Roman RN) Duration (sec): 70-90 (Prince Roman RN) Duration Criteria: Less than Two 120 Second Contractions (Prince Roman RN) Pattern: Normal: <= 5 Contractions in 10 Minutes (Prince Roman RN) Resting Tone (Palpate): Relaxed (Prince Roman RN) Monitor Mode: External US (Prince Roman RN) FHR Baseline Rate : 135 (Prince Roman RN) Variability: Moderate 6-25 bpm (Prince Roamn RN) Accelerations: 15X15 (Prince Roman RN) Decelerations: None (Prince Roman RN) Communication: RN at Bedside; RN Reviewed Strip (Prince Roman RN)
[2016-09-21] MEDS ORDERED: IBUPROFEN 800 MG TABLET ONE (11:08)
--- NOTE | 2016-09-21 11:22 | Delivery Summary ---
Del Sum A-C Datetime Report Generated by CPN: 09/21/2016 11:22 ADMISSION DATA Chief Complaint: Uterine Contractions Indication for Induction: Not Applicable Admission Impression: Active Labor Admit Provider Comments: membranes intact DELIVERY PERSONNEL Delivery Doctor:: Whit Bah CNM Nurse Energy Analyst Certified:: Whit Bah CNM Labor and Delivery Nurse:: Prince Roman RNtricot knitting machine operator Nurse:: ANTHONY Fischer Threshing Operator:: Leatha Manzano RN Equity Director/RAND: Brandi Hill, PUBLICITY CONSULTANT Equity Director/BORDERER: Nicole Santiago, BORDERER II MATERNAL INFORMATION Delivery Anesthesia: None Medications After Delivery: Pitocin Bolus-Please Comment; Pitocin Drip 20 Units/1000ml NSS Estimated Blood Loss (ml): 150 Maternal Complications: None LABOR SUMMARY EDC: 09/21/2016 00:00 No. Babies in Womb: 1 Attempted: No Labor Anesthesia: None LABOR INFORMATION Reason for Induction: Not Applicable Onset of Labor: 09/21/2016 06:00 Complete Dilatation: 09/21/2016 10:09 Oxytocin: N/A Group B Beta Strep: Negative Steroids Given: None Reason Steroids Not Administered: Not Applicable MEMBRANES Membranes Rupture Method: Spontaneous Rupture of Membranes: 09/21/2016 09:51 Length of Rupture (hr): 0.35 Amniotic Fluid Color: Clear Amniotic Fluid Amount: Moderate Amniotic Fluid Odor: Normal STAGES OF LABOR Stage 1 hr: 4 Stage 1 min: 9 Stage 2 hr: 0 Stage 2 min: 3 Stage 3 hr: 0 Stage 3 min: 11 Total Time in Labor hr: 4 Total Time in Labor min: 23 VAGINAL DELIVERY Episiotomy: None Laceration Extension: N/A Laceration Type: None Laceration Repair: Not Applicable CSECTION DELIVERY Primary Indication: N/A CSection Incision: N/A BABY A INFORMATION Delivery Date/Time: 09/21/2016 10:12 Method of Delivery: Vaginal Born in Route : No : N/A Forceps: N/A Vacuum Extraction: N/A Shoulder Dystocia : No PRESENTATION/POSITION BABY A Presentation: Cephalic Cephalic Presentation: Vertex Vertex Position: Right Occipital Anterior Breech Presentation: N/A PLACENTA INFORMATION BABY A Placenta Delivery Time : 09/21/2016 10:23 Placenta Method of Delivery: Spontaneous Placenta Status: Delivered SCORES BABY A Heart Rate 1 min: >100 bpm Resp Effort 1 min: Good Cry Reflex Irritability 1 min: Cough or Sneeze or Pulls Away Muscle Tone 1 min: Active Motion Color 1 min: Body [place], Extremities Blue Resuscitation Effort 1 min: Tactile Stimulation SCORE 1 MIN: 9 Heart Rate 5 min: >100 bpm Resp Effort 5 min: Good Cry Reflex Irritability 5 min: Cough or Sneeze or Pulls Away Muscle Tone 5 min: Active Motion Color 5 min: Body [place], Extremities Blue Resuscitation Effort 5 min: N/A SCORE 5 MIN: 9 Resuscitation Effort 10 min: N/A INFORMATION BABY A Gestational Age at Delivery: 40.0 Gestational Status: Full Term- 39- 40.6 Weeks Infant Outcome : Liveborn Condition : Stable Sex: Female IDENTIFICATION BABY A Infant Verification Date/Time: 09/21/2016 10:31 ID Band Number: [id number] Mother's Name Verified: Yes RN Verifying Infant: S Abel RN Additional Verifying Personnel: A Santiago BORDERER WEIGHT/LENGTH BABY A Birthweight (gm): 2950 Weight (lb): 6 Weight (oz): 8 Length (in): 19.00 Length (cm): 48.26 CORD INFORMATION BABY A No. Cord Vessels: 3 Nuchal Cord : N/A Cord Blood Taken: Yes-For Eval (Mom's Blood Type - or O+) Suction: Mouth; Nose ASSESSMENT BABY A Infant Complications: None Physical Findings at Delivery: Within Normal Limits Respirations: Appears Normal Skin to Skin: Yes Skin to Skin Time (min): 60 Excelsior Machine Feeder/ALS Called : No Care By: D Neetu [facility] Transferred To: Remains with Mother SIGNATURES : I was personally available for consultation and serving as supervising physician for the [facility].
--- NOTE | 2016-09-21 12:00 | L&D Flow Sheet ---
LD Flowsheet Datetime Report Generated by CPN: 09/21/2016 12:00 Datetime: 09/21/2016 11:45 Pain Scale: 1 (Prince Roman, RN) Pain Location: Perineum (Prince Pateleet, RN) Pain Relief Measures: Pain Medication Given (Prince Pateleet, RN) LaborFlag: Antepartum (QS system process) Datetime: 09/21/2016 11:44 NBP Sys/Sandrine/Mean (mmHg): 121 (QS system process) : 80 (QS system process) : 94 (QS system process) Pulse: 52 (QS system process) LaborFlag: Antepartum (QS system process) Datetime: 09/21/2016 11:30 Respirations: 16 (Prince Roman RN) Pain Scale: 1 (Prince Roman RN) Pain Location: Perineum (Prince Roman RN) Pain Relief Measures: Pain Medication Given (Pirnce Roman RN) LaborFlag: Antepartum (QS system process) Datetime: 09/21/2016 11:29 NBP Sys/Sandrine/Mean (mmHg): 121 (QS system process) : 73 (QS system process) : 92 (QS system process) Pulse: 49 (QS system process) LaborFlag: Antepartum (QS system process) Datetime: 09/21/2016 11:15 NBP Sys/Sandrine/Mean (mmHg): 117 (QS system process) : 65 (QS system process) : 82 (QS system process) Pulse: 62 (QS system process) Respirations: 16 (Prince Abel, RN) Pain Scale: 1 (Prince Abel, RN) Pain Location: Perineum (Prince Abel, RN) Pain Relief Measures: Pain Medication Given (Prince Abel, RN) LaborFlag: Antepartum (QS system process) Datetime: 09/21/2016 11:00 NBP Sys/Sandrine/Mean (mmHg): 165 (QS system process) : 125 (QS system process) : 142 (QS system process) Respirations: 16 (Prince Abel, RN) Pain Scale: 2 (Prince Abel, RN) Pain Location: Perineum (Prince Abel, RN) Pain Relief Measures: Pain Medication Given (Prince Abel, RN) LaborFlag: Antepartum (QS system process) Datetime: 09/21/2016 10:45 Temperature (F): 98.7 (Prince [place], RN) Temperature (C): 37.1 (QS system process) Pain Scale: 1 (Prince Abel, RN) Pain Location: Perineum (Prince [place], RN) LaborFlag: Antepartum (QS system process) Datetime: 09/21/2016 10:30 Respirations: 16 (Prince Pateleet, RN) Pain Scale: 1 (Prince Abel, RN) Pain Presence: Intermittent (Prince Abel, RN) Pain Type: Ache (Prince Abel, RN) Pain Location: Perineum (Prince Abel, RN) Pain Relief Measures: Comfort Measures (Annotations: Warm blankets given) (Prince Abel, RN) LaborFlag: Antepartum (QS system process) Datetime: 09/21/2016 10:29 NBP Sys/Sandrine/Mean (mmHg): 121 (QS system process) : 55 (QS system process) : 82 (QS system process) Pulse: 73 (QS system process) LaborFlag: Antepartum (QS system process) Datetime: 09/21/2016 10:15 NBP Sys/Sandrine/Mean (mmHg): 126 (QS system process) : 67 (QS system process) : 86 (QS system process) Pulse: 71 (QS system process) LaborFlag: Antepartum (QS system process) Datetime: 09/21/2016 10:11 Monitor Mode: External US (Prince Roman RN) FHR Baseline Rate : 135 (Prince Roman RN) Variability: Moderate 6-25 bpm (Prince Roman RN) Comments: UTD; RN continuously adjusting ultrasound for fht (Prince Roman RN) Pushing: Urge to Push (Prince Roman RN) Pushing Position: Pushing with Contractions (Prince Roman RN) Pushing Progress: Descent with Pushing (Prince Roman RN) Stage 2 Comments: Lala Bah CNM at BS, pushing with pt. (Prince Roman RN) Communication: RN at Bedside; RN Reviewed Strip (Prince Roman RN) Datetime: 09/21/2016 10:09 Preparation for Delivery: Perineal Prep Done; Setup for Delivery (Prince Roman RN) Datetime: 09/21/2016 10:08 Dilatation (cm): 10.0 (Prince Roman RN) Effacement (%): 100 (Prince Roman RN) Station: 2 (Prince Roman RN) Exam by: Lala Bah CNM (Prince Roman RN) Pushing: Urge to Push (Prince Roman RN) Communication Comments: Lala Bah CNM at bedside; Provider and RN remain at bedside continuously to assess fht and pt (Prince Roman RN) Datetime: 09/21/2016 10:04 Pain Scale: 5 (Prince Roman RN) Pain Presence: Intermittent (Prince Roman RN) Pain Type: Contraction (Prince Roman RN) Pain Relief Measures: Comfort Measures (Prince Roman RN) Pain Coping: Declines Medication or Epidural (Annotations: Pt declines epidural at this time.) (Prince Roman RN) I/O Interventions: Up to BR (Prince Roman RN) LaborFlag: Antepartum (QS system process) Datetime: 09/21/2016 10:02 NBP Sys/Sandrine/Mean (mmHg): 126 (QS system process) : 80 (QS system process) : 87 (QS system process) Pulse: 68 (QS system process) LaborFlag: Antepartum (QS system process) Datetime: 09/21/2016 10:00 Monitor Mode: External; Palpation (Prince Roman RN) Frequency (min): 3-6 (Prince Roman RN) Quality: Moderate to Strong (Prince Roman RN) Duration (sec): 70-90 (Prince Roman RN) Duration Criteria: Less than Two 120 Second Contractions (Prince Roman RN) Pattern: Normal: <= 5 Contractions in 10 Minutes (Prince Roman RN) Resting Tone (Palpate): Relaxed (Prince Roman RN) Monitor Mode: External US (Prince Roman RN) FHR Baseline Rate : 135 (Prince Roman RN) Variability: Moderate 6-25 bpm (Prince Roman RN) Accelerations: 15X15 (Prince Roman RN) Decelerations: None (Prince Roman RN) Communication: RN at Bedside; RN Reviewed Strip (Prince Roman RN)
[2016-09-21] MEDS ORDERED: ACETAMINOPHEN 100 ML IV ONE ×2 (13:22→15:00)
[2016-09-21] MEDS ORDERED: NA PHOS,M-B/NA PHOS,DI-BA (ADULT) 133 ML ENEMA PR PRN (13:31)
[2016-09-21] MEDS ORDERED: DIBUCAINE 1% OINTMENT 28 GM TP PRN (13:31)
[2016-09-21] MEDS ORDERED: ZOLPIDEM TARTRATE 5 MG TABLET PO PRN (13:31)
[2016-09-21] MEDS ORDERED: PROMETHAZINE HCL 25 MG TABLET PO PRN (13:31)
[2016-09-21] MEDS ORDERED: ACETAMINOPHEN 650 MG SUPP.RECT PR PRN (13:31)
[2016-09-21] MEDS ORDERED: PROMETHAZINE HCL 25 MG SUPP.RECT PR PRN (13:31)
[2016-09-21] MEDS ORDERED: BENZOCAINE/MENTHOL AEROSOL SPRAY 56 ML TOP PRN (13:31)
[2016-09-21] MEDS ORDERED: MAGNESIUM HYDROXIDE SUSP 30 ML UDCUP PO PRN (13:31)
[2016-09-21] MEDS ORDERED: PSEUDOEPHEDRINE HCL 30 MG TABLET PO PRN (13:31)
[2016-09-21] MEDS ORDERED: DIPH/PERTUSS(ACELL)/TETANUS VAC/PF 0.5 ML SYR (>=10YO) IM PRN (13:31)
[2016-09-21] MEDS ORDERED: DIPHENHYDRAMINE HCL 25 MG CAPSULE PO PRN (13:31)
[2016-09-21] MEDS ORDERED: PROMETHAZINE HCL INJ 25 MG/1 ML VIAL IV PRN (13:31)
[2016-09-21] MEDS ORDERED: OXYTOCIN/NORMAL SALINE 1,000 ML IV PRN (13:31)
[2016-09-21] MEDS ORDERED: MEASLES,MUMPS&RUBELLA VACC/PF 0.5 ML VIAL SUBCUT PRN (13:31)
[2016-09-21] MEDS ORDERED: GLYCERIN/WITCH HAZEL LEAF 1 EACH MED..PAD TP PRN (13:31)
--- NOTE | 2016-09-21 14:00 | L&D Flow Sheet ---
LD Flowsheet Datetime Report Generated by CPN: 09/21/2016 14:00 Datetime: 09/21/2016 13:30 Respirations: 18 (Prince Abel, RN) LaborFlag: Antepartum (QS system process) Datetime: 09/21/2016 13:20 Respirations: 16 (Prince Abel, RN) Pain Scale: 3 (Prince Abel, RN) Pain Presence: Constant (Prince Abel, RN) Pain Type: Cramping (Prince Abel, RN) Pain Location: Perineum (Prince [place], RN) Pain Relief Measures: Pain Medication Given (Prince [place], RN) LaborFlag: Antepartum (QS system process) Datetime: 09/21/2016 12:20 Respirations: 16 (Prince Abel, RN) Pain Scale: 1 (Prince Able, RN) Pain Location: Perineum (Prince [place], RN) Pain Relief Measures: Pain Medication Given (Prince [place], RN) LaborFlag: Antepartum (QS system process) Datetime: 09/21/2016 12:15 NBP Sys/Sandrine/Mean (mmHg): 117 (QS system process) : 70 (QS system process) : 86 (QS system process) Pulse: 60 (QS system process) LaborFlag: Antepartum (QS system process) Datetime: 09/21/2016 12:00 Pain Scale: 1 (Prince Roman RN) Pain Location: Perineum (Prince Roman RN) Pain Relief Measures: Pain Medication Given (Prince Roman RN) LaborFlag: Antepartum (QS system process)
--- NOTE | 2016-09-21 14:24 | Admission Physical ---
Datetime Report Generated by CPN: 09/21/2016 14:24 CURRENT ADMISSION Chief Complaint: Uterine Contractions Indication for Induction: Not Applicable Admit Plan: Admit to Unit; Initiate Labor Protocol ALLERGIES Medication Allergies: Yes Medication Allergies: Penicillins/Unknown reactio (09/21/2016); Sulfa (Sulfonamide Antibiotics)/Unknown reactio (09/21/2016) Latex: No Latex Allergies Food Allergies: NONE Environmental Allergies: NONE OBSTETRICAL HISTORY EDC: 09/21/2016 00:00 : 7 Para: 2 Term: 2 : 0 SAB: 4 IAB: 0 Ectopic: 0 Livin Cesareans: 0 VBACs: 0 Multiple Births: 0 Gestational Diabetes: No Rh Sensitization: No Incompetent Cervix: No ARNOLD: No Infertility: No ART Treatment: No Uterine Anomaly: No IUGR: No Hx Previous C/S: No Macrosomia: No Hx Loss/Stillborn: Yes PIH: No Hx : No Placenta Previa/Abruption: No Depression/PP Depression: No PTL/PROM: No Post Hemorrhage: No Current Procedures: Ultrasound; NST Obstetrical History Comments: G1: 2010 8 week SAB G2: 2010 6 week SAB G3: 2011 9 week SAB G4: 2012 SAB baby girl, 40.4 weeks, 7 lb 3 oz, No complications G5: 2012 15 week SAB G6: 2014 baby boy, 39.3 weeks, 6 lb 9 oz G7: Current; Scheduled for C/S for transverse lie, Vertex now SEE RECORDS Alcohol: No Marijuana : No Cocaine: No Other Illicit Drugs: No Cigarettes: Never Smoker. [id number] MEDICAL HISTORY Diabetes: No Blood Transfusion: No Pulmonary Disease (Asthma, TB): No Breast Disease: No Hypertension: No Fur Cleaner Surgery: No Heart Disease: No Hosp/Surgery: No Autoimmune Disorder: No Anesthetic Complications: No Kidney Disease: No Abnormal Pap Smear: No Neuro/Epilepsy: No Psychiatric Disorders: No Other Medical Diseases: Yes Hepatitis/Liver Disease: No Significant Family History: No Varicosities/Phlebitis: No Trauma/Violence : No Thyroid Dysfunction: No Medical History Comments: Other: Methadone 70 mg daily; Umbilical hernia INFECTIOUS HISTORY Gonorrhea: No Genital Herpes: No Chlamydia: No Tuberculosis: No Syphilis: No Hepatitis: No HIV/AIDS Exposure: No Rash or Viral Illness: No HPV: No PHYSICAL EXAM General: Normal HEENT: Deferred Neurologic: Normal Thyroid: Deferred Heart: Normal Lungs: Normal Breast: Deferred Back: Deferred Abdomen: Normal Genitourinary Exam: Normal Extremities: Normal DTRs: Deferred Pelvic Type: Adequate Physical Exam Comments: cervix per RN FETUS A EGA: 40.0 Monitoring: External US FHR- Baseline: 130 Variability: Moderate 6-25bpm Decelerations: None Presentation: Vertex Admit Comment: membranes intact PLANS FOR LABOR AND DELIVERY Labor and Delivery: None Pain Management: Epidural Feeding Preference: Breast Benefit of Breast Feed Discussed: Yes Circumcision: N/A INFORMED CONSENT Assignment: Eleazar Deal MD Signature: with User ID: Palmer : with User ID: Palmer
--- NOTE | 2016-09-21 16:00 | L&D Flow Sheet ---
LD Flowsheet Datetime Report Generated by CPN: 09/21/2016 16:00 Datetime: 09/21/2016 14:30 Pain Scale: 1 (Prince Roman RN) Pain Presence: Constant (Prince Roman RN) Pain Type: Cramping (Prince Roman RN) Pain Location: Abdomen (Prince Roman RN) Pain Relief Measures: Comfort Measures (Prince Roman RN) LaborFlag: Antepartum (QS system process)
[2016-09-21] MEDS ORDERED: IBUPROFEN 800 MG TABLET PO SCH (18:00)
[2016-09-21] MEDS: FERROUS SULFATE 325 MG TABLET PO SCH (18:53)
[2016-09-21] MEDS: ACETAMINOPHEN 100 ML IV SCH ×2 (18:53→23:08)
[2016-09-21] MEDS: DOCUSATE SODIUM 100 MG CAPSULE PO SCH (18:53)
--- NOTE | 2016-09-21 19:00 | L&D Flow Sheet ---
LD Flowsheet Datetime Report Generated by CPN: 09/21/2016 19:00 Datetime: 09/21/2016 14:30 Pain Scale: 1 (Prince Lindot, RN) Pain Presence: Constant (Prince Pateleet, RN) Pain Type: Cramping (Prince Abel, RN) Pain Location: Abdomen (Prince Pateleet, RN) Pain Relief Measures: Comfort Measures (Prince Pateleet, RN) LaborFlag: Antepartum (QS system process) Datetime: 09/21/2016 13:30 Respirations: 18 (Prince Abel, RN) LaborFlag: Antepartum (QS system process) Datetime: 09/21/2016 13:20 Respirations: 16 (Prince Abel, RN) Pain Scale: 3 (Prince Abel, RN) Pain Presence: Constant (Prince Abel, RN) Pain Type: Cramping (Prince Abel, RN) Pain Location: Perineum (Prince Abel, RN) Pain Relief Measures: Pain Medication Given (Prince Abel, RN) LaborFlag: Antepartum (QS system process) Datetime: 09/21/2016 12:20 Respirations: 16 (Prince Abel, RN) Pain Scale: 1 (Prince Abel, RN) Pain Location: Perineum (Prince Abel, RN) Pain Relief Measures: Pain Medication Given (Prince Abel, RN) LaborFlag: Antepartum (QS system process) Datetime: 09/21/2016 12:15 NBP Sys/Sandrine/Mean (mmHg): 117 (QS system process) : 70 (QS system process) : 86 (QS system process) Pulse: 60 (QS system process) LaborFlag: Antepartum (QS system process) Datetime: 09/21/2016 12:00 Pain Scale: 1 (Prince Roman RN) Pain Location: Perineum (Prince Roman, RN) Pain Relief Measures: Pain Medication Given (Prince Roman, RN) LaborFlag: Antepartum (QS system process) Datetime: 09/21/2016 11:45 Pain Scale: 1 (Prince Roman RN) Pain Location: Perineum (Prince Roman RN) Pain Relief Measures: Pain Medication Given (Prince Roman RN) LaborFlag: Antepartum (QS system process) Datetime: 09/21/2016 11:44 NBP Sys/Sandrine/Mean (mmHg): 121 (QS system process) : 80 (QS system process) : 94 (QS system process) Pulse: 52 (QS system process) LaborFlag: Antepartum (QS system process) Datetime: 09/21/2016 11:30 Respirations: 16 (Prince Roman RN) Pain Scale: 1 (Prince Roman RN) Pain Location: Perineum (Prince Roman RN) Pain Relief Measures: Pain Medication Given (Prince Roman RN) LaborFlag: Antepartum (QS system process) Datetime: 09/21/2016 11:29 NBP Sys/Sandrine/Mean (mmHg): 121 (QS system process) : 73 (QS system process) : 92 (QS system process) Pulse: 49 (QS system process) LaborFlag: Antepartum (QS system process) Datetime: 09/21/2016 11:15 NBP Sys/Sandrine/Mean (mmHg): 117 (QS system process) : 65 (QS system process) : 82 (QS system process) Pulse: 62 (QS system process) Respirations: 16 (Prince Roman RN) Pain Scale: 1 (Prince Roman RN) Pain Location: Perineum (Prince Roman RN) Pain Relief Measures: Pain Medication Given (Prince Roman RN) LaborFlag: Antepartum (QS system process) Datetime: 09/21/2016 11:00 NBP Sys/Sandrine/Mean (mmHg): 165 (QS system process) : 125 (QS system process) : 142 (QS system process) Respirations: 16 (Prince Roman, RN) Pain Scale: 2 (Prince Roman, RN) Pain Location: Perineum (Prince Pateleet, RN) Pain Relief Measures: Pain Medication Given (Prince Lindot, RN) LaborFlag: Antepartum (QS system process) Datetime: 09/21/2016 10:45 Temperature (F): 98.7 (Prince Abel, RN) Temperature (C): 37.1 (QS system process) Pain Scale: 1 (Prince Roman, RN) Pain Location: Perineum (Prince Abel, RN) LaborFlag: Antepartum (QS system process) Datetime: 09/21/2016 10:30 Respirations: 16 (Prince Roman, RN) Pain Scale: 1 (Prince Roman RN) Pain Presence: Intermittent (Prince Pateleet, RN) Pain Type: Ache (Prince Pateleet, RN) Pain Location: Perineum (Prince Lindot, RN) Pain Relief Measures: Comfort Measures (Annotations: Warm blankets given) (Prince Roman RN) LaborFlag: Antepartum (QS system process) Datetime: 09/21/2016 10:29 NBP Sys/Sandrine/Mean (mmHg): 121 (QS system process) : 55 (QS system process) : 82 (QS system process) Pulse: 73 (QS system process) LaborFlag: Antepartum (QS system process) Datetime: 09/21/2016 10:15 NBP Sys/Sandrine/Mean (mmHg): 126 (QS system process) : 67 (QS system process) : 86 (QS system process) Pulse: 71 (QS system process) LaborFlag: Antepartum (QS system process) Datetime: 09/21/2016 10:11 Monitor Mode: External US (Prince Roman RN) FHR Baseline Rate : 135 (Prince Roman RN) Variability: Moderate 6-25 bpm (Prince Roman RN) Comments: UTD; RN continuously adjusting ultrasound for fht (Prince Roman RN) Pushing: Urge to Push (Prince Roman RN) Pushing Position: Pushing with Contractions (Prince Roman RN) Pushing Progress: Descent with Pushing (Prince Roman RN) Stage 2 Comments: K Olvin CNM at BS, pushing with pt. (Prince Roman RN) Communication: RN at Bedside; RN Reviewed Strip (Prince Roman RN) Datetime: 09/21/2016 10:09 Preparation for Delivery: Perineal Prep Done; Setup for Delivery (Prince Roman RN) Datetime: 09/21/2016 10:08 Dilatation (cm): 10.0 (Prince Roman RN) Effacement (%): 100 (Prince Roman RN) Station: 2 (Prince Roman RN) Exam by: Lala Bah CNM (Prince Roman RN) Pushing: Urge to Push (Prince Roman RN) Communication Comments: Lala Bah CNM at bedside; Provider and RN remain at bedside continuously to assess fht and pt (Prince Roman RN) Datetime: 09/21/2016 10:04 Pain Scale: 5 (Prince Roman RN) Pain Presence: Intermittent (Prince Roman RN) Pain Type: Contraction (Prince Roman RN) Pain Relief Measures: Comfort Measures (Prince Roman RN) Pain Coping: Declines Medication or Epidural (Annotations: Pt declines epidural at this time.) (Prince Roman RN) I/O Interventions: Up to BR (Prince Roman RN) LaborFlag: Antepartum (QS system process) Datetime: 09/21/2016 10:02 NBP Sys/Sandrine/Mean (mmHg): 126 (QS system process) : 80 (QS system process) : 87 (QS system process) Pulse: 68 (QS system process) LaborFlag: Antepartum (QS system process) Datetime: 09/21/2016 10:00 Monitor Mode: External; Palpation (Prince Abel, RN) Frequency (min): 3-6 (Prince Abel, RN) Quality: Moderate to Strong (Prince Abel, RN) Duration (sec): 70-90 (Prince Abel, RN) Duration Criteria: Less than Two 120 Second Contractions (Prince Abel, RN) Pattern: Normal: <= 5 Contractions in 10 Minutes (Prince Abel, RN) Resting Tone (Palpate): Relaxed (Prince Abel, RN) Monitor Mode: External US (Prince Lindot, RN) FHR Baseline Rate : 135 (Prince Abel, RN) Variability: Moderate 6-25 bpm (Prince Abel, RN) Accelerations: 15X15 (Prince Abel, RN) Decelerations: None (Prince Roman RN) Communication: RN at Bedside; RN Reviewed Strip (Prince Roman RN) Datetime: 09/21/2016 09:54 Dilatation (cm): 9.0 (Prince Roman RN) Effacement (%): 100 (Prince Roman RN) Station: 1 (Prince Roman RN) Exam by: Lala Bah CNM (Prince Roman RN) Communication Comments: Lala Bah CNM at bedside to assess pt (Prince Roman RN) Datetime: 09/21/2016 09:51 Pain Scale: 5 (Prince Roman RN) Pain Coping: Requesting Pain Medication or Epidural (Prince Roman RN) Dilatation (cm): 8.0 (Prince Roman RN) Effacement (%): 100 (Prince Roman RN) Station: 1 (Prince Roman RN) Exam by: Michael Roman RN (Prince Roman RN) Membrane Status: Ruptured (Prince Roman RN) Membranes Ruptured Date/Time: 09/21/2016 09:51 (Prince Roman RN) Membranes Rupture Method: Spontaneous (Prince Roman RN) Amniotic Fluid Color: Clear (Prince Roman RN) Amniotic Fluid Amount: Moderate (Prince Roman RN) Amniotic Fluid Odor: Normal (Prince Roman RN) Vaginal Bleeding: None (Prince Roman RN) Strip Reviewed by: Lala Bah CNM (Prince Roman RN) Anesthesia Comments: Labs back; Dr Alcala called for epidural states he will be up in 20 min. (Prince Roman RN) Provider Notified (Name): Lala Bah CNM (Prince Roman RN) Communication Comments: provider notified of ROM, ve (Prince Roman RN) LaborFlag: Antepartum (QS system process) Datetime: 09/21/2016 09:34 Communication Comments: Awaiting labs for epidural. (Prince Roman RN) Datetime: 09/21/2016 09:30 Monitor Mode: External; Palpation (Prince Roman RN) Frequency (min): 5-6 (Prince Roman RN) Quality: Moderate to Strong (Prince Roman RN) Duration (sec): 70-80 (Prince Roman RN) Duration Criteria: Less than Two 120 Second Contractions (Prince Roman RN) Pattern: Normal: <= 5 Contractions in 10 Minutes (Prince Roman RN) Resting Tone (Palpate): Relaxed (Prince Roman RN) Monitor Mode: External US (Prince Roman RN) FHR Baseline Rate : 130 (Prince Roman RN) Variability: Moderate 6-25 bpm (Prince Roman RN) Accelerations: 15X15 (Prince Roman RN) Decelerations: None (Prince Roman RN) Communication: RN at Bedside; RN Reviewed Strip (Prince Roman RN) Datetime: 09/21/2016 09:24 Respirations: 16 (Prince Roman RN) Pain Scale: 5 (Prince Roman RN) Pain Presence: Intermittent (Prince Roman RN) Pain Relief Measures: Comfort Measures (Prince Roman RN) Pain Coping: Breathing Through Contractions; Requesting Pain Medication or Epidural (Prince Roman RN) Dilatation (cm): 6.0 (Prince Roman RN) Effacement (%): 100 (Prince Roman RN) Station: 0 (Prince Roman RN) Exam by: Lala Bah CNM (Prince Roman RN) Vaginal Exam Comments: provider states pt may have epidural now. (Prince Roman RN) Level of Consciousness: Fully Conscious (Prince Roman RN) Headache: Denies (Prince Roman RN) Nausea/Vomiting: Denies (Prince Roman RN) RUQ Epigastric Pain: Denies (Prince Roman RN) LaborFlag: Antepartum (QS system process) Datetime: 09/21/2016 09:17 NBP Sys/Sandrine/Mean (mmHg): 125 (QS system process) : 87 (QS system process) : 102 (QS system process) Pulse: 67 (QS system process) I/O Interventions: Up to BR (Prince Roman RN) LaborFlag: Antepartum (QS system process) Datetime: 09/21/2016 09:03 IV/Blood Work: Labs Drawn (Prince Roman RN) Datetime: 09/21/2016 09:02 IV/Blood Work: IV Started; IV Bolus Started (Prince Roman RN) Patient Care Comments: LR bolus per order; 18G L Forearm good blood return, site wnl, pt tolerated well. (Prince Roman RN) Datetime: 09/21/2016 09:00 Monitor Mode: External; Palpation (Prince Roman RN) Frequency (min): 6-8 (Prince Roman RN) Quality: Moderate (Prince Roman RN) Duration (sec): 90-110 (Prince Roman RN) Duration Criteria: Less than Two 120 Second Contractions (Prince Roman RN) Pattern: Normal: <= 5 Contractions in 10 Minutes (Prince Roman RN) Resting Tone (Palpate): Relaxed (Prince Roman RN) Monitor Mode: External US (Prince Roman RN) FHR Baseline Rate : 135 (Prince Roman RN) Variability: Moderate 6-25 bpm (Prince Roman RN) Accelerations: 10X10 (Prince Roman RN) Decelerations: None (Prince Roman RN) Communication: RN at Bedside; RN Reviewed Strip (Prince Roman RN) Datetime: 09/21/2016 08:40 Instructional Method: Verbal; Patient Instructed; Family/Support Person Instructed; Verbalized Understanding (Prince Roman RN) Plan of Care: Plan of Care Discussed; Vaginal Delivery; Labor (Prince Roman RN) Labor/Induction: Labor Stages (Prince Roman RN) Pain Management: Epidural; PRN Medications; Pain Scale/Goals; Comfort Measures (Prince Roman RN) Communication Comments: Lala Bah CNM states to admit pt; them ambulate off monitors (Prince Roman RN) Datetime: 09/21/2016 08:37 Communication Comments: Lala Bah CNM at bedside to assess patient (Prince Roman RN) Datetime: 09/21/2016 08:30 Monitor Mode: External; Palpation (Prince Pateleet, RN) Frequency (min): 6-7 (Prince Abel, RN) Quality: Moderate to Strong (Prince Abel, RN) Duration (sec): 70-80 (Prince Abel, RN) Duration Criteria: Less than Two 120 Second Contractions (Prince Abel, RN) Pattern: Normal: <= 5 Contractions in 10 Minutes (Prince Abel, RN) Resting Tone (Palpate): Relaxed (Prince Abel, RN) Monitor Mode: External US (Prince Pateleet, RN) FHR Baseline Rate : 135 (Prince Abel, RN) Variability: Moderate 6-25 bpm (Prince Abel, RN) Accelerations: 10X10 (Prince Abel, RN) Decelerations: Early (Prince Abel, RN) Communication: RN at Bedside; RN Reviewed Strip (Prince Pateleet, RN) Datetime: 09/21/2016 08:27 Dilatation (cm): 4.0 (Prince Abel, RN) Effacement (%): 100 (Prince Roman RN) Station: 0 (Prince Roman RN) Exam by: Michael Roman RN (Prince Roman RN) Vaginal Bleeding: None (Prince Roman RN) Cervix, Consistency: Soft (Prince Roman RN) Cervix, Position: Midposition (Prince Roman RN) Datetime: 09/21/2016 08:00 Monitor Mode: External; Palpation (Prince Roman RN) Frequency (min): 5-6 (Prince Roamn RN) Quality: Moderate (Prince Roman RN) Duration (sec): 70-90 (Prince Roman RN) Duration Criteria: Less than Two 120 Second Contractions (Prince Roman RN) Pattern: Normal: <= 5 Contractions in 10 Minutes (Prince Roman RN) Resting Tone (Palpate): Relaxed (Prince Roman RN) Monitor Mode: External US (Pricne Roman RN) FHR Baseline Rate : 135 (Prince Roman RN) Variability: Moderate 6-25 bpm (Prince Roman RN) Accelerations: 15X15 (Prince Roman RN) Decelerations: None (Prince Roman RN) Communication: RN at Bedside; RN Reviewed Strip (Prince Roman RN) Datetime: 09/21/2016 07:52 Monitor Interventions for UA: [place] Adjusted (Prince Roman, ) Datetime: 09/21/2016 07:51 Communication Comments: [place] [employer] at bedside to answer pt questions (Prince Roman, ) Datetime: 09/21/2016 07:45 Frequency (min): 5min (Prince Roman RN) Pain Scale: 4 (Prince Roman RN) Pain Presence: Intermittent (Prince Roman, CUATE) Pain Type: Contraction (Prince Roman RN) Pain Location: Abdomen (Prince Roman RN) Pain Relief Measures: Comfort Measures (Prince Roman RN) Pain Coping: Breathing Through Contractions (Prince Roman RN) Vaginal Bleeding: None (Prince Roman RN) Dilatation (cm): 3-4 cms (Prince Roman RN) Effacement: >80_ effaced (Prince Roman RN) Station: minus 1 to 0 (Prince Roman RN) Consistency: Soft (Prince Roman RN) Position: Midposition (Prince Roman RN) Total Pike's Score: 10 (QS system process) : 9-14 = Usually no failure for induction (QS system process) Level of Consciousness: Fully Conscious (Prince Roman RN) DTR's/Clonus: DTRs 2+; No Clonus (Prince Roman RN) Headache: Denies (Prince Roman RN) Breath Sounds, Left: Clear and Equal (Prince Roman RN) Breath Sounds, Right: Clear and Equal (Prince Roman RN) Nausea/Vomiting: Denies (Prince Roman RN) RUQ Epigastric Pain: Denies (Prince Roman RN) Patient Position/Activity: Left Tilt (Prince Roman RN) Comfort Measures: Breathing/Relaxation (Prince Roman RN) I/O Interventions: Clear Liquids Given; Up to BR (Prince Roman RN) Instructional Method: Demo; Verbal; Patient Instructed; Family/Support Person Instructed; Verbalized Understanding (Prince Roman RN) Plan of Care: Plan of Care Discussed; Labor (Prince Roman RN) Unit Routine: [place] to Room; Call [place]; Bed; Visiting Policy; Waiting Areas; Infant Security; Phone/Cell Phone Use; Photography; Unit Personnel; Handwashing; Flu/Illness Precautions; Monitoring; IV Pumps; Safety/Fall Risk Prevention; Diet/Nutrition Services; Bathroom Privileges; Routine Time Outs; Medications (Prince Roman RN) Labor/Induction: Labor Stages (Prince Roman RN) Pain Management: Pain Scale/Goals; Comfort Measures (Prince Roman RN) Related: Common Discomforts of ; Maternal Physical Changes; Maternal Emotional Changes; Nutrition; Hydration; Activity and Rest (Prince Roman RN) LaborFlag: Antepartum (QS system process) Datetime: 09/21/2016 07:44 I/O Interventions: Popsicle (Prince Roman RN) Datetime: 09/21/2016 07:42 Dilatation (cm): 4.0 (Prince Roman RN) Effacement (%): 100 (Prince Roman RN) Station: -1 (Prince Roman RN) Exam by: Michael Roman RN (Prince Roman RN) Vaginal Bleeding: None (Prince Roman RN) Cervix, Consistency: Soft (Prince Roman RN) Cervix, Position: Midposition (Prince Roman RN) Datetime: 09/21/2016 07:39 NBP Sys/Sandrine/Mean (mmHg): 133 (QS system process) : 86 (QS system process) : 105 (QS system process) Pulse: 86 (QS system process) LaborFlag: Antepartum (QS system process)
[2016-09-21] MEDS: IBUPROFEN 800 MG TABLET PO SCH (21:04)
[2016-09-21] MEDS: FAMOTIDINE 20 MG TABLET PO SCH (21:04)
[2016-09-22] MEDS: ACETAMINOPHEN 100 ML IV SCH (05:15)
--- NOTE | 2016-09-22 06:00 | L&D Current Admission ---
Current Admit Datetime Report Generated by CPN: 09/22/2016 06:00 ADMISSION INFORMATION Current Admit Date/Time: 09/21/2016 08:40 (09/21/2016 08:46:Prince Roman RN) Reason for Admission: Onset of Labor (09/21/2016 08:46:Prince Roman RN) Chief Complaint: Contractions (09/21/2016 07:45:Prince Roman RN) EGA per Dates: 40.0 (09/21/2016 08:46:QS system process) Method of Arrival: Ambulatory (09/21/2016 08:46:Prince Roman RN) Reason for Induction: Not Applicable (09/21/2016 08:46:Prince Roman RN) Records Available: Yes (09/21/2016 08:46:Prince Roman RN) General Admission Information: Reviewed; Updated; Confirmed (09/21/2016 08:46:Prince Roman RN) General Admission Reviewed By: Michael Roman RN (09/21/2016 08:46:Prince Roman RN) BELONGINGS/ADVANCED DIRECTIVES Other Belongings: See [facility] belongings consent filled out by patient (09/21/2016 08:46:Prince Roman RN) Disposition of Belongings: Kept with Patient (09/21/2016 08:46:Prince Roman RN) Advance Direct for Healthcare: No, and Wants No Information (09/21/2016 08:46:Prince Roman RN) Durable Power of Cutlet Maker Pork: No (09/21/2016 08:46:Prince Roman RN) Living Will: No (09/21/2016 08:46:Prince Roman RN) Organ Donor: Yes (09/21/2016 08:46:Prince Roman RN) Pt Rights Information Given: Yes (09/21/2016 08:46:Prince Roman RN) Pt Understands Pt Rights: Yes (09/21/2016 08:46:Prince Roman RN) LEARNING ASSESSMENT Knowledge Level: Understands L_D Process (09/21/2016 08:46:Prince Roman RN) Barriers to Learning: None (09/21/2016 08:46:Prince Roman RN) Learning Readiness: Motivated (09/21/2016 08:46:Prince Roman RN) Learns Best By: 1 to 1 Instruction; Demonstration (09/21/2016 08:46:Prince Roman RN) Learning Needs: Labor and Delivery Process; Pain Management; Symptoms to Report; Treatment Plan; Medication; Diagnosis (09/21/2016 08:46:Prince Roman RN) DOMESTIC VIOLANCE SCREENING Dom Viol Threatened/Hurt: No (09/21/2016 08:46:Prince Roman RN) Hx of Abuse/Neglect past 2yrs: No (09/21/2016 08:46:Prince Roman RN) Feel Unsafe Going Home: No (09/21/2016 08:46:Prince Roman RN) Addt'l Observ Indicating Abuse: No (09/21/2016 08:46:Prince Roman RN) Reason Unable to Complete Screen: N/A, Screen Completed (09/21/2016 08:46:Prince Roman RN) Considered Personal Harm/Suicide: No (09/21/2016 08:46:Prince Roman RN) NUTRITIONAL/FUNCTIONAL SCREENING Problem with Appetite >5 Days: No (09/21/2016 08:46:Prince Roman RN) Chew/Swallow Difficulties: No (09/21/2016 08:46:Prince Roman RN) Inappropriate Wt Gain/Loss: No (09/21/2016 08:46:Prince Roman RN) Presence Skin Breakdown/Ulcer: No (09/21/2016 08:46:Prince Roman RN) Special Diet: No (09/21/2016 08:46:Prince Roman RN) Pt Requests Tubing Drier Visit: No (09/21/2016 08:46:Prince Roman RN) Hx of Any of the Following?: N/A (09/21/2016 08:46:Prince Roman RN) New Diagnosis of: N/A (09/21/2016 08:46:Prince Roman RN) Requires Assist w/Ambulation: No (09/21/2016 08:46:Prince Roman RN) Uses Assist Device to Ambulate: No (09/21/2016 08:46:Prince Roman RN) Pt Requires Help w/ADL's: No (09/21/2016 08:46:Prince Roman RN)
--- NOTE | 2016-09-22 06:00 | L&D General Admission ---
General Admit Datetime Report Generated by CPN: 09/22/2016 06:00 INFORMATION Patient Age: 25 (02/01/2016 05:40:QS system process) EDC: 09/21/2016 00:00 (07/01/2016 15:45:Vanessa Brown RN) : 7 (07/01/2016 15:45:Heike Hinojosa RN) Para: 2 (09/19/2016 16:45:Wendy Romero RN) Term: 2 (07/01/2016 15:45:Heike Hinojosa RN) : 0 (07/01/2016 15:45:Heike Hinojosa RN) Spontaneous Abortions: 4 (07/01/2016 15:45:Heike Hinojosa RN) Induced Abortions: 0 (07/01/2016 15:45:Heike Hinojosa RN) Livin (07/01/2016 15:45:Heike Hinojosa RN) Cesareans: 0 (07/01/2016 15:45:Heike Hinojosa RN) VBACs: 0 (07/01/2016 15:45:Heike Hinojosa RN) Ectopic: 0 (07/01/2016 15:45:Heike Hinojosa RN) Multiple Births: 0 (07/01/2016 15:45:Heike Hinojosa RN) Baby, Number in Womb: 1 (09/19/2016 16:45:Wendy Romero RN) CARE Primary English Language Learner Teacher: [facility] (07/01/2016 15:45:Heike Hinojosa RN) Month of 1st Visit: March 2016 (07/01/2016 15:45:Heike Hinojosa RN) Adequate Care: Yes (07/01/2016 15:45:ANTHONY Mcallister) Prepregnancy Weight (lb): 140 (07/01/2016 15:45:Heike Hinojosa RN) Prepregnancy Weight (kg): 63.6 (07/01/2016 15:45:QS system process) Height (in): 67 (09/21/2016 14:23:QS system process) ALLERGIES Medication Allergy: Yes (07/01/2016 15:45:Heike Hinojosa RN) Medication Allergies: Penicillins/Unknown reactio (09/21/2016); Sulfa (Sulfonamide Antibiotics)/Unknown reactio (09/21/2016) (09/21/2016 07:40:QS system process) Latex Allergy: No Latex Allergies (07/01/2016 15:45:Brenda Scott RN) Food Allergies: NONE (07/01/2016 15:45:Heike Hinojosa RN) Environmental Allergies: NONE (07/01/2016 15:45:Heike Hinojosa RN) COMMUNICATION Primary Language: Slovenian (07/01/2016 15:45:Heike Hinojosa RN) Medical Tx Preferred Language: Slovenian (07/01/2016 15:45:Heike Hinojosa RN) Communication Barrier(s): None (Annotations: Data stored by [facility] on behalf of user) (07/01/2016 15:45:ANTHONY Mcallister) DEMOGRAPHICS Address: [address] [place] [address] [place] [address] (09/16/2016 14:52:QS system process) Zipcode: [id number] (09/16/2016 14:52:QS system process) Home (07/01/2016 14:57:QS system process) SSN: [id number] (02/01/2016 05:40:QS system process) Next of Kin Name: NERY VALLE (07/01/2016 15:00:QS system process) Next of Kin (07/01/2016 15:00:QS system process) Next of Kin Relationship: OR (07/01/2016 15:00:QS system process) Date of : 1990 (02/01/2016 05:40:QS system process) Marital Status: (02/01/2016 05:40:QS system process) Sex: Female (02/01/2016 05:40:QS system process) Occupation: None (07/01/2016 15:45:Heike Hinojosa RN) Race: (02/01/2016 05:40:QS system process) Ethnicity: Non- or (02/01/2016 05:40:QS system process) Buddhist: Holiness (08/22/2016 16:58:QS system process) Education: 14 (07/01/2016 15:45:Prince Roman RN) FOB Involved: Yes (07/01/2016 15:45:Heike Hinojosa RN) Father of Baby Name: Indio Chavez IV (07/01/2016 15:45:Heike Hinojosa RN) Person Auth to release pt PHI: Indio Chavez IV (07/01/2016 15:45:Prince Roman RN) DRUG AND ALCOHOL USE Alcohol: No (07/01/2016 15:45:Heike Hinojosa RN) Cigarettes: Never Smoker. [id number] (07/01/2016 15:45:Brenda Scott RN) Marijuana: No (07/01/2016 15:45:Heike Hinojosa RN) Cocaine: No (07/01/2016 15:45:Heike Hinojosa RN) Other Illicit Drugs: No (07/01/2016 15:45:Heike Hinojosa RN) VACCINE HISTORY Influenza Vaccine: No (07/01/2016 15:45:Heike Hinojosa RN) Pneumococcal Vaccine: No (07/01/2016 15:45:Heike Hinojosa RN) Tetanus Vaccine: Uncertain (07/01/2016 15:45:Heike Hinojosa RN) Tdap Vaccine: Uncertain (07/01/2016 15:45:Heike Hinojosa RN) Hepatitis B Vaccine: Yes (07/01/2016 15:45:Heike Hinojosa RN) Hepatitis B Vaccine Date : 2009 (07/01/2016 15:45:Heike Hinojosa RN) Rice Dryer Mechanic: [facility] (07/01/2016 15:45:Heike Hinojosa RN) Feeding Preference: Breast (07/01/2016 15:45:Heike Hinojosa RN) Benefit of Breast Feed Discussed: Yes (07/01/2016 15:45:Brenda Scott RN) Circumcision: N/A (07/01/2016 15:45:Heike Hinojosa RN) Classes Attended: No (07/01/2016 15:45:Brenda Scott RN) Tubal Ligation: Yes (07/01/2016 15:45:Heike Hinojosa RN) Tubal Authorization Signed: Yes (07/01/2016 15:45:Prince Roman RN) Consent: N/A (07/01/2016 15:45:Heike Hinojosa RN) Consent Signed: N/A (07/01/2016 15:45:Prince Roman RN) Pain Management Plans: Epidural (07/01/2016 15:45:Heike Hinojosa RN) Plans for Labor and Delivery: None (07/01/2016 15:45:Prince Roman RN) Support Person: Indio Chavez IV (07/01/2016 15:45:Prince Roman RN) Support Person Relationship: (07/01/2016 15:45:Heike Hinojosa RN) Cultural/Spritual Practice: No (07/01/2016 15:45:Heike Hinojosa RN) Spir/Cult Dietary Needs: No (07/01/2016 15:45:Heike Hinojosa RN) LIVING SITUATION/DISCHARGE PLAN Living Arrangements: House (07/01/2016 15:45:Heike Hinojosa RN) Adequate Access to:: Electric; Heat; Refrigeration; Plumbing/Running water; Phone; Transportation (07/01/2016 15:45:Heike Hinojosa RN) WIC Program: Yes (07/01/2016 15:45:Heike Hinojosa RN) Discharge Facilities Painter Person: (07/01/2016 15:45:Heike Hinojosa RN) Person to Help after Discharge: (07/01/2016 15:45:Heike Hinojosa RN) Currently Using Commun Resources: No (07/01/2016 15:45:Heike Hinojosa RN) Specify Current Resource Used: Medicaid (07/01/2016 15:45:Prince Roman RN) Outside Agency/Parcel Contractor: No (07/01/2016 15:45:Prince Roman RN) Car Seat for Discharge: Yes (07/01/2016 15:45:Heike Hinojosa RN) Adoption Requested: No (07/01/2016 15:45:Heike Hinojosa RN) Pt Contact w/ Post : N/A (07/01/2016 15:45:Heike Hinojosa RN) LABS Blood Type: O Positive (07/01/2016 15:45:Heike Hinojosa RN) Antibody Screen: negative (07/01/2016 15:45:Heike Hinojosa RN) Hemoglobin: 10.8 L (09/21/2016 09:12:QS system process) Hematocrit: 33.5 L (09/21/2016 09:12:QS system process) MCV: 78 L (09/21/2016 09:12:QS system process) Group Beta Strep: Negative (07/01/2016 15:45:Prince Roman RN) Gonorrhea: Negative (07/01/2016 15:45:Brenda Scott RN) Chlamydia: Negative (07/01/2016 15:45:Brenda Scott RN) RPR/VDRL: Nonreactive (07/01/2016 15:45:Heike Hinojosa RN) HIV Exposure Test: Negative (07/01/2016 15:45:Brenda Scott RN) Hepatitis B: Negative (07/01/2016 15:45:Brenda Scott RN) Rubella: Immune (07/01/2016 15:45:Heike Hinojosa RN) Rubella Titer: 3.99 (07/01/2016 15:45:Heike Hinojosa RN) OB/PREVIOUS HISTORY Previous Procedures: Ultrasound; NST (07/01/2016 15:45:Brenda Scott RN) Current Procedures: Ultrasound; NST (07/01/2016 15:45:Brenda Scott RN) History of Previous : No (07/01/2016 15:45:Brenda Scott RN) History of Gestational Diabetes: No (07/01/2016 15:45:Brenda Scott RN) History of PIH: No (07/01/2016 15:45:Brenda Scott RN) History of Incompetent Cervix: No (07/01/2016 15:45:Brenda Scott RN) History of Placenta Previa/Abrup: No (07/01/2016 15:45:Brenda Scott RN) History of Macrosomia: No (07/01/2016 15:45:Brenda Scott RN) History of IUGR: No (07/01/2016 15:45:Brenda Scott RN) History of Hemorrhage: No (07/01/2016 15:45:Brenda Scott RN) History of Loss/Stillborn: Yes (07/01/2016 15:45:Syl Gayle RN) History of : No (07/01/2016 15:45:Brenda Scott RN) History of D (Rh) Sensitization: No (07/01/2016 15:45:Brenda Scott RN) History Recurrent Loss/Stillborn: Yes (07/01/2016 15:45:Syl Gayle RN) History Depression/PP Depression: No (07/01/2016 15:45:Brenda Scott RN) History of Uterine Anomaly/ARNOLD: No (07/01/2016 15:45:Brenda Scott RN) History of Infertility: No (07/01/2016 15:45:Brenda Scott RN) History of ART Treatment: No (07/01/2016 15:45:Brenda Scott RN) History of ARNOLD: No (07/01/2016 15:45:Brenda Scott RN) Comments Obstetrical History: G1: 2010 8 week SAB G2: 2010 6 week SAB G3: 2011 9 week SAB G4: 2012 SAB baby girl, 40.4 weeks, 7 lb 3 oz, No complications G5: 2012 15 week SAB G6: 2014 baby boy, 39.3 weeks, 6 lb 9 oz G7: Current; Scheduled for C/S for transverse lie, Vertex now (07/01/2016 15:45:Maude Jennings RN) MEDICAL HISTORY Med Hx Diabetes: No (07/01/2016 15:45:Brenda Scott RN) Med Hx Hypertension: No (07/01/2016 15:45:Brenda Scott RN) Med Hx Heart Disease: No (07/01/2016 15:45:Brenda Scott RN) Med Hx Autoimmune Disorder: No (07/01/2016 15:45:Brenda Scott RN) Med Hx Kidney Disease/UTI: No (07/01/2016 15:45:Brenda Scott RN) Med Hx Neurologic/Epilepsy: No (07/01/2016 15:45:Brenda Scott RN) Med Hx Psychiatric Disorders: No (07/01/2016 15:45:Brenda Scott RN) Med Hx Hepatitis/Liver Disease: No (07/01/2016 15:45:Brenda Scott RN) Med Hx Varicosities/Phlebitis: No (07/01/2016 15:45:Brenda Scott RN) Med Hx Thyroid Dysfunction: No (07/01/2016 15:45:Brenda Scott RN) Med Hx Trauma/Violence: No (07/01/2016 15:45:Brenda Scott RN) Med Hx Blood Transfusion: No (07/01/2016 15:45:Brenda Scott RN) Med Hx Pulmonary (Asthma,TB): No (07/01/2016 15:45:Brenda Scott RN) Med Hx Breast: No (07/01/2016 15:45:Brenda Scott RN) Med Hx PHYSICAL EDUCATION TEACHER Surgery: No (07/01/2016 15:45:Brenda Scott RN) Med Hx Hospitalization/Surgery: No (07/01/2016 15:45:Brenda Scott RN) Med Hx Anesthetic Complications: No (07/01/2016 15:45:Brenda Scott RN) Med Hx Abnormal Pap Smear: No (07/01/2016 15:45:Brenda Scott RN) Other Medical Diseases: Yes (07/01/2016 15:45:Syl Gayle RN) Med Hx Significant Family Hx: No (07/01/2016 15:45:Brenda Scott RN) Details of Med/Surg Hx: Other: Methadone 70 mg daily; Umbilical hernia (07/01/2016 15:45:Syl Gayle RN) INFECTIOUS HISTORY Inf Hx Gonorrhea: No (07/01/2016 15:45:Brenda Scott RN) Inf Hx Chlamydia: No (07/01/2016 15:45:Brenda Scott RN) Inf Hx Syphilis: No (07/01/2016 15:45:Brenda Scott RN) Inf Hx HIV/AIDS: No (07/01/2016 15:45:Brenda Scott RN) Inf Hx Human Papilloma Virus: No (07/01/2016 15:45:Brenda Scott RN) Inf Hx Pt/Partner Genital Herpes: No (07/01/2016 15:45:Brenda Scott RN) Inf Hx Tuberculosis/Exposure: No (07/01/2016 15:45:Brenda Scott RN) Inf Hx Hepatitis B,C: No (07/01/2016 15:45:Brenda Scott RN) Inf Hx Rash or Viral Illness: No (07/01/2016 15:45:Brenda Scott RN) GENETIC HISTORY Gen Hx Age >=35 at JAYDEN: No (07/01/2016 15:45:Brenda Scott RN) Gen Hx Thalassemia: Yes (07/01/2016 15:45:Brenda Scott RN) Gen Hx Congenital Heart Defect: No (07/01/2016 15:45:Brenda Scott RN) Gen Hx Neural Tube Defect: No (07/01/2016 15:45:Brenda Scott RN) Gen Hx Down's Syndrome: No (07/01/2016 15:45:Brenda Scott RN) Gen Hx Nadir-Sachs: No (07/01/2016 15:45:Brenda Scott RN) Gen Hx Elizabeth: No (07/01/2016 15:45:Brenda Scott RN) Gen Hx Familial Dysautonomia: No (07/01/2016 15:45:Brenda Scott RN) Gen Hx Sickle Cell Disease/Trait: No (07/01/2016 15:45:Brenda Scott RN) Gen Hx Hemophilia/Blood Disorder: No (07/01/2016 15:45:Brenda Scott RN) Gen Hx Muscular Dystrophy: No (07/01/2016 15:45:Brenda Scott RN) Gen Hx Cystic Fibrosis: No (07/01/2016 15:45:Brenda Scott RN) Gen Hx Huntingtons Chorea: No (07/01/2016 15:45:Brenda Scott RN) Gen Hx Mental Retardation/Autism: No (07/01/2016 15:45:Brenda Scott RN) Gen Hx Tested for Fragile X: No (07/01/2016 15:45:Brenda Scott RN) Gen Hx Other Inher/Chromosomal: No (07/01/2016 15:45:Brenda Scott RN) Gen Hx Maternal Metabolic DO: No (07/01/2016 15:45:Brenda Scott RN) Gen Hx Pt Father or FOB Defect: No (07/01/2016 15:45:Brenda Scott RN) Gen Hx Other Genetic History: No (07/01/2016 15:45:Brenda Scott RN) Gen Hx Drugs/Meds since LMP: No (07/01/2016 15:45:Brenda Scott RN) Details of Genetic History: Recurrent Loss: SAB x4 (07/01/2016 15:45:Syl Gayle RN)
[2016-09-22] MEDS: IBUPROFEN 800 MG TABLET PO SCH ×3 (06:03→21:45)
[2016-09-22] MEDS ORDERED: METHADONE HCL 10 MG TABLET PO ONE (06:15)
--- NOTE | 2016-09-22 06:15 | L&D Care Plan ---
LD CARE PLANS Datetime Report Generated by CPN: 09/22/2016 06:15 Datetime: 09/21/2016 08:39 State: Risk For (ANTHONY Quispe) Related To: Labor and Delivery Process; Treatment and Procedures (ANTHONY Quispe) Goal(s): Patients Pain will be Assessed and Managed; Patient will Verbalize Adequate Relief of Pain or the Ability to [place] with Current Pain (ANTHONY Quispe) Interventions: Assess Pain Severity on Scale of 0 (None) to 5 (Severe); Assess Type, Location and Intensity of Pain Each Time Client Reports Discomfort and Notify Provider if Unusal Pain Develops; Encourage Proper Breathing and Relaxation Techniques; Offer Alternatives Such as Repositioning, Calm Environment, Massages, Diversional Activities, Ice Pack, Splinting, and Ambulation; Administer Analgesics as Ordered; Assist with Epidural Placement as Appropriate; Evaluate Therapeutic Effectiveness of Medication and Treatments (ANTHONY Quispe) State: Risk For (ANTHONY Quispe) Related To: Labor and Delivery Process (ANTHONY Quispe) Goal(s): Patient will have Decreased Anxiety and be able to Function at Acceptable Levels (ANTHONY Quispe) Interventions: Assess Verbal and Nonverbal Behavioral Indicators of Anxiety; Assist Patient to Identify and Verbalize Symptoms of Anxiety; Identify and Demonstrate Techniques to Control Anxiety; Assist Patient with Coping Mechanisms to Manage Anxiety; Provide Theraputic Touch for the Patient; Explain to Patient, Using a Calm Reassuring Approach and Nonmedical Terms, All Activities, Procedures, and Concerns; Instruct Patient and Family about Post Discharge Care, Limitations, Symptoms to Report and Resources Available (ANTHONY Quispe) State: Risk For (ANTHONY Quispe) Related To: Labor and Delivery Process; Treatment and Procedures (ANTHONY Quispe) Goal(s): Patient will Accurately Verbalize Understanding of Plan of Care and Treatment; Patient and Family will Accurately Verbalize Understanding of the Disease Process (ANTHONY Quispe) Interventions: Assess Motivation and Willingness of Patient/Family to Learn; Assess Preferred Learning Mode: One to One Instruction, Reading, Videos, Group Discussion or Demonstration; Assess Barriers to Learning: Pain, Emotional State, Language Barrier, Cognitive Impairment, Visual or Hearing Deficits; Assess Patient and Family Knowledge of Disease Process, Medications and Treatment; Discuss Therapy and/or Treatment Options, Describe Rationale Behind Management, Therapy and Treatment Recommendations; Instruct Patient and Family on Signs and Symptoms to Report; Instruct Patient and Family on Medication Effects and Side Effects; Provide Appropriate and Timely Education Using Multiple Techniques; Provide Patient and Family with Support Group Information and Resources; Give Clear and Thorough Explanations and Demonstrations (ANTHONY Quispe) State: Risk For (ANTHONY Quispe) Related To: Prolonged Labor or Induction; Invasive Procedures (ANTHONY Quispe) Goal(s): The Patient will be Free of Infection, Vital Signs Stable and Lab Work within Normal Parameters (ANTHONY Quispe) Interventions: Instruct and Reinforce Proper Handwashing, Hygiene, and Care Techniques to Patient and Family; Monitor Vital Signs; Monitor Patient for the Following Signs of Infection: Fever, Abdominal Tenderness, Unusual Discharge; Monitor Aminiotic Fluid, Urine and Lochia for Color and Odor; Observe Wounds, Incisions and Invasive Line Sites for Redness, Drainage and Edema; Assess IV Sites per Hospital Policy; Monitor Lab and Test Results and Notify Provider of Abnormal Findings; Assess Nutritional Status and Promote Good Nutrition (ANTHONY Quispe) State: Risk For (ANTHONY Quispe) Goal(s): Patient will Achieve and Maintain a Balanced Fluid Volume Status; Hemodynamically Stable (ANTHONY Quispe) Interventions: Monitor Vital Signs; Auscultate Breath Sounds; Monitor Patient for Skin Turgor, Mucous Membranes, Dry Skin, Weakness, Headaches and Confusion; Provide Oral Fluids as Ordered; Initiate and Maintain Intravenous Fluids as Ordered; Monitor Intake and Output as Indicated Per Patient Status; Accurately Measure Blood Loss; Monitor Lab and Test Results as Obtained and Notify Provider of Abnormal Findings; Monitor Patient's Weight (ANTHONY Quispe) Outcome: Patient will have Clear Lung Sounds (ANTHONY Quispe) Outcome: Patient will have Vital Signs within Expected Range (ANTHONY Quispe) Outcome: Urine Output will be within Expected Range (ANTHONY Quispe) Outcome: Patient will have Minimal Generalized or Upper Extremity Edema (ANTHONY Quispe) State: Not Applicable (ANTHONY Quispe) State: Not Applicable (ANTHONY Quispe) State: Not Applicable (ANTHONY Quispe) State: Not Applicable (ANTHONY Quispe) State: Not Applicable (ANTHONY Quispe) State: Not Applicable (ANTHONY Quispe)
[2016-09-22 07:51] LABS: HEMATOCRIT 30.9 % (36.0-47.0); HEMOGLOBIN 9.9 g/dL (12.0-15.5); HGB HCT DIFFERENCE -1.2; MEAN CORPUSCULAR HEMOGLOBIN 25.2 pg (27.0-33.4); MEAN CORPUSCULAR HGB CONC 32.1 g/dL (32.0-36.0); MEAN CORPUSCULAR VOLUME 78 fl (80-97); RED BLOOD COUNT 3.95 10^6/uL (3.72-5.28); RED CELL DISTRIBUTION WIDTH 14.6 % (11.5-14.0); WHITE BLOOD COUNT 12.3 10^3/uL (4.0-10.5)
--- NOTE | 2016-09-22 09:06 | PDOC PROGRESS REPORT ---
Subjective-OB Subjective: Post Delivery Day: 26 year old. Denies any needs at this time Physical Exam (OB) Vital Signs: Temp Pulse Resp BP Pulse Ox 98.4 F 82 16 125/85 100 09/22/16 07:42 09/22/16 07:42 09/22/16 07:42 09/22/16 07:42 09/22/16 07:42 Intake & Output 09/21/16 09/22/16 09/23/16 06:59 06:59 06:59 Weight 69.9 kg - Lochia Lochia Amount: Small 10-25 ml Lochia Color: Rubra/Red - Abdomen Description: Soft, Round Hernia Present: No Bowel Sounds: Normoactive Flatus Presence: Present Stool: No Fundal Description: Firm, Midline Fundal Height: u/u - u/2 Objective-Diagnostic Laboratory: 09/22/16 07:31 09/21/16 09/21/16 09/22/16 09:12 09:12 07:31 WBC 11.6 H 12.3 H RBC 4.31 3.95 Hgb 10.8 L 9.9 L Hct 33.5 L 30.9 L MCV 78 L 78 L MCH 25.2 L 25.2 L MCHC 32.4 32.1 RDW 14.2 H 14.6 H Plt Count 257 261 Seg Neutrophils % 74.8 Lymphocytes % 15.7 Monocytes % 8.8 Eosinophils % 0.4 Basophils % 0.3 Absolute Neutrophils 8.7 H Absolute Lymphocytes 1.8 Absolute Monocytes 1.0 Absolute Eosinophils 0.0 Absolute Basophils 0.0 Blood Type O POSITIVE Antibody Screen NEGATIVE
[2016-09-22] MEDS: DOCUSATE SODIUM 100 MG CAPSULE PO SCH ×2 (09:55→17:18)
[2016-09-22] MEDS: FERROUS SULFATE 325 MG TABLET PO SCH ×2 (09:56→17:18)
[2016-09-22] MEDS: SENNOSIDES/DOCUSATE 8.6-50 MG 1 EACH TABLET PO SCH (09:56)
[2016-09-22] MEDS: FAMOTIDINE 20 MG TABLET PO SCH ×2 (09:56→21:44)
[2016-09-22] MEDS: PRENATAL VITAMIN W-O CA NO5/FE FUMARATE/FA CAPSULE PO SCH (09:56)
[2016-09-22] MEDS: ACETAMINOPHEN 325 MG TABLET PO PRN ×3 (11:48→23:18)
[2016-09-23] MEDS: IBUPROFEN 800 MG TABLET PO SCH ×2 (05:14→13:08)
[2016-09-23] MEDS ORDERED: METHADONE HCL 10 MG TABLET PO SCH (08:00)
[2016-09-23 09:11] VITALS: BP 119/72
[2016-09-23] MEDS: FERROUS SULFATE 325 MG TABLET PO SCH ×2 (09:54→17:26)
[2016-09-23] MEDS: PRENATAL VITAMIN W-O CA NO5/FE FUMARATE/FA CAPSULE PO SCH (09:54)
[2016-09-23] MEDS: SENNOSIDES/DOCUSATE 8.6-50 MG 1 EACH TABLET PO SCH (09:54)
[2016-09-23] MEDS: DOCUSATE SODIUM 100 MG CAPSULE PO SCH ×2 (09:54→17:26)
[2016-09-23] MEDS: FAMOTIDINE 20 MG TABLET PO SCH (09:56)
--- NOTE | 2016-09-23 10:33 | PDOC DISCHARGE SUMMARY ---
Final Diagnosis Discharge Date: 09/23/16 - Final Diagnosis (1) Acute blood loss anemia Is this a current diagnosis for this admission?: Yes (2) Methadone dependence Is this a current diagnosis for this admission?: Yes (3) Vaginal delivery Is this a current diagnosis for this admission?: Yes Discharge Data - Discharge Medication Home Medications: Methadone HCl [Methadose] 70 mg PO DAILY 07/01/16 Ranitidine HCl [Zantac 150 mg Tablet] 1 tab PO DAILY 08/11/16 Pnv95/Iron Fum/Folic Acid [ Caplet] 1 each PO DAILY 08/22/16 Docusate Sodium [Colace 100 mg Capsule] 100 mg PO BID #60 capsule 09/23/16 Ferrous Sulfate [Feosol 325 mg Tablet] 325 mg PO BID #60 tablet 09/23/16 Ibuprofen [Motrin 800 mg Tablet] 800 mg PO Q8 #60 tablet 09/23/16 Medroxyprogesterone Acetate [Depo-Provera] 150 mg IM ONCE PRN #1 ml 09/23/16 Methadone HCl [Dolophine 10 mg Tablet] 70 mg PO QAM #0 tablet 09/23/16 Gestational Age: 40 Reason(s) for Admission: Onset of Labor Procedures: None Intrapartum Procedure(s): Spontaneous Vaginal Delivery - Data Baby 1 Female at 1 minute: 9 at 5 minutes: 9 Weight: 2950 kg Home with Mother: Yes Complications: No - Diagnosis Test Laboratory: Temp Pulse Resp BP Pulse Ox 98.1 F 68 16 119/72 100 09/23/16 07:00 09/23/16 07:00 09/23/16 07:00 09/23/16 07:00 09/23/16 07:00 09/21/16 09/21/16 09/22/16 07:33 09:12 07:31 RBC 4.31 3.95 Hgb 10.8 L 9.9 L Hct 33.5 L 30.9 L Urine Opiates Screen NEGATIVE - Discharge information/Instructions Discharge Activity: Activity As Tolerated, Pelvic Rest, No tub bath Discharge Diet: Regular Disposition: HOME, SELF-CARE Follow up with: [facility] in: 4, Weeks
[2016-09-23] MEDS ORDERED: MEDROXYPROGESTERONE ACET INJ 150 MG/1 ML VIAL IM PRN (13:38)
[2016-09-23] MEDS: ACETAMINOPHEN 325 MG TABLET PO PRN (13:57)
== END 2016-09-23 19:05 | disposition home or self-care (01) | DRG 775 ==
LOC: LC 07:24 → LR 08:39 → EEVIPCON 08:39 → 2S 14:22
PROVIDERS: ADMIT Student in an Organized Health Care Education/Training Program; ATTEND Student in an Organized Health Care Education/Training Program
PROC: 10E0XZZ Delivery of Products of Conception, External Approach (ICD-10-PCS; principal; 2016-09-21)
DX: O26.23 Pregnancy care for patient with recurrent pregnancy loss, third trimester (principal); O99.324 Drug use complicating childbirth; D62 Acute posthemorrhagic anemia; F11.90 Opioid use, unspecified, uncomplicated; O99.02 Anemia complicating childbirth; Z3A.40 40 weeks gestation of pregnancy; Z37.0 Single live birth; O09.293 Supervision of pregnancy with other poor reproductive or obstetric history, third trimester
CPT/HCPCS: 36415; 59025; 80307; 81005; 85025; 85027; 86592; 86850; 86900; 86901; J0131; J1050; J2590; J3490

== ENCOUNTER 2018-09-13 11:15 | Day surgery (SDC) | payer MEDICAID ==
[~2018-09-13 11:15] MED LIST: BUPIVACAINE HCL 0.25 % INJ/PF (2.5 MG/1 ML) 30 ML VIAL ONE
[2018-09-13] MEDS ORDERED: ONDANSETRON HCL INJ/PF 4 MG/2 ML SDV ONE (11:47)
[2018-09-13] MEDS ORDERED: MIDAZOLAM 2 MG/2 ML INJ ONE ×2 (11:47→12:45)
[2018-09-13] MEDS ORDERED: FENTANYL CITRATE INJ/PF 100 MCG/2 ML AMPUL ONE (11:47)
[2018-09-13] MEDS ORDERED: ACETAMINOPHEN 1,000 MG/100 ML RTUPB IV ONE (11:48)
[2018-09-13] MEDS ORDERED: PROPOFOL INJ 200 MG/20 ML VIAL IV ONE (11:48)
[2018-09-13] MEDS ORDERED: DEXMEDETOMIDINE INJ 80 MCG/20 ML VIAL IV ONE (12:45)
[2018-09-13] MEDS: BUPIVACAINE INJ/PF LIPOSOME/PF 266 MG/20 ML SDV ONE ×2 (13:05→13:10)
[2018-09-13] MEDS: FENTANYL CITRATE INJ/PF 100 MCG/2 ML AMPUL ONE ×2 (14:03→14:30)
--- NOTE | 2018-09-15 20:05 | Discharge Summary ---
Discharge Summary (SDC) - Discharge Final Diagnosis: Symptomatic umbilical hernia Date of Surgery: 09/13/18 Discharge Date: 09/13/18 Condition: Stable Forms: [facility] Discharge Plan Treatment or Instructions: Discharge home. Diet as tolerated. Activity: No lifting greater than 10 pounds x 6 weeks. Follow-up with me in 7-10 days. Okay to shower in 48 hours. No swimming pools or tub baths times 2 weeks. [place] 5/325 mg p.o. every 6 hours as needed for pain. Referrals: CHINYERE BECKMAN MD [ACTIVE STAFF] - 09/25/18 1:00 pm Discharge Diet: As Tolerated Respiratory Treatments at Home: Deep Breathing/Coughing, Incentive Spirometer Discharge Activity: No Lifting Over 10 Pounds Home Care Assistance: None Needed Report the Following to Your Physician Immediately: Shortness of Breath, Nausea, Vomiting, Increase in Pain, Fever over 101 Degrees, Unusual Bleeding, Redness, Swelling, Warmth
--- NOTE | 2018-09-15 20:08 | Operative Report ---
Nonrecallable Operative Report DATE OF SURGERY: 09/13/18 PREOPERATIVE DIAGNOSIS: Symptomatic umbilical hernia. POSTOPERATIVE DIAGNOSIS: Same as above. OPERATION: Open primary umbilical hernia repair. SURGEON: CHINYERE BECKMAN ANESTHESIA: LMAC TISSUE REMOVED OR ALTERED: None COMPLICATIONS: None apparent ESTIMATED BLOOD LOSS: Minimal PROCEDURE: Drains/implants: None. Procedure in detail: After informed consent was obtained, the patient was brought into the operating room and laid in the supine position. The area of the abdomen was prepped and draped in a normal sterile fashion. A 15 blade scalpel was used to create an infraumbilical curvilinear incision. Dissection was carried through the subcutaneous tissue using sharp and blunt dissection. The cicatrix was encircled with a Whit clamp. It was retracted anteriorly. The hernia sac was divided using a 15 blade scalpel. There is a large amount of preperitoneal fat within the umbilical hernia defect. The fascial edges were cleared away and the preperitoneal fat was returned to the abdominal cavity. The midline defect was then closed in [id number] fashion using 0 Ethibond suture x3. The cicatrix was tacked back to the fascia using 3-0 Vicryl suture. The subcutaneous tissue was closed using 3-0 Vicryl suture. The overlying skin was closed using 4-0 Vicryl Rapide suture in subcuticular fashion. A dressing was placed, and the procedure was concluded. All sponge, instrument, and needle counts were correct x2. Condition: Stable.
== END 2018-09-13 15:16 | disposition home or self-care (01) ==
LOC: SC 11:15
PROVIDERS: ATTEND Surgery
DX: K42.9 Umbilical hernia without obstruction or gangrene (principal); Z88.2 Allergy status to sulfonamides; Z88.0 Allergy status to penicillin
CPT/HCPCS: 49585; J2250; J3010; J2405; S0020; J2704; J0131; C9290; J3490; 830

== ENCOUNTER → 2018-09-17 | Outpatient (CLI) | payer MEDICAID ==
[2018-09-17 12:52] LABS: ABSOLUTE EOSINOPHILS # (AUTO) 0.1 10^3/uL (0.0-0.6); ABSOLUTE MONOCYTES (AUTO) 0.6 10^3/uL (0.1-1.4); ABSOLUTE NEUT (AUTO) 4.8 10^3/uL (1.7-8.2); BASOPHILS % (AUTO) 0.5 % (0-2); EOSINOPHILS % (AUTO) 1.7 % (0-6); HEMATOCRIT 37.5 % (36.0-47.0); HEMOGLOBIN 12.5 g/dL (12.0-15.5); LYMPHOCYTES % (AUTO) 26.5 % (13-45); MEAN CORPUSCULAR HEMOGLOBIN 27.6 pg (27.0-33.4); MEAN CORPUSCULAR HGB CONC 33.3 g/dL (32.0-36.0); MEAN CORPUSCULAR VOLUME 83 fl (80-97); MONOCYTES % (AUTO) 7.8 % (3-13); PLATELET COUNT 284 10^3/uL (150-450); RED BLOOD COUNT 4.52 10^6/uL (3.72-5.28); RED CELL DISTRIBUTION WIDTH 13.9 % (11.5-14.0); SEGMENTED NEUTROPHILS % (AUTO) 63.5 % (42-78); TOTAL CELLS COUNTED % (AUTO) 100 %; WHITE BLOOD COUNT 7.6 10^3/uL (4.0-10.5)
[2018-09-17 13:24] LABS: ANION GAP 11 (5-19); BLOOD UREA NITROGEN 6 mg/dL (7-20); CALCIUM 9.3 mg/dL (8.4-10.2); CARBON DIOXIDE 29 mmol/L (22-30); CHLORIDE 102 mmol/L (98-107); GLUCOSE 98 mg/dL (75-110); POTASSIUM 4.1 mmol/L (3.6-5.0); SODIUM 142.4 mmol/L (137-145)
== END ==
LOC: OD 11:57
PROVIDERS: ATTEND Physician Assistant Surgical
DX: T81.49XA Infection following a procedure, other surgical site, initial encounter (principal)
CPT/HCPCS: 36415; 80048; 85025

== ENCOUNTER 2019-03-07 19:13 | Emergency (ER) | payer MEDICAID ==
--- NOTE | 2019-03-07 20:09 | ER Document Report ---
ED Medical Screen (RME) - General Chief Complaint: Abdominal Pain Stated Complaint: LOWER BACK/ABDOMINAL PAIN Time Seen by Provider: 03/07/19 20:01 Primary Care Provider: MAGO PALENCIA PA-C [Primary Care Provider] - Follow up as needed Mode of Arrival: Ambulatory Information source: Patient Notes: Patient is an otherwise healthy 28-year-old female presenting to the emergency department with multiple complaints. Patient reports she is at least 1 week late on her. And thinks she may be . Patient has had multiple negative Lisa test at home. Patient also reports intermittent abdominal pain associated with eating food. She reports intermittent nausea and vomiting. She denies any fevers or diarrhea. She denies any dysuria or abnormal vaginal discharge. She also reports that she had an umbilical hernia repair done in September by Dr. Henriquez, she states that there is drainage coming from her umbilical site. Exam: Abdomen soft, nontender with no guarding and no rebound. I have greeted and performed a rapid initial assessment of this patient. A comprehensive ED assessment and evaluation of the patient, analysis of test results and completion of the medical decision making process will be conducted by additional ED providers. I have specifically instructed the patient or family members with the patient to immediately return to any nursing staff should anything change in the patient's condition or with their chief complaint. This medical record was dictated with voice recognizing software. There may be grammatical, syntax errors that are unintended. TRAVEL OUTSIDE OF THE [place] IN LAST 30 DAYS: No - Related Data Allergies/Adverse Reactions: Penicillins Allergy (Unknown, Verified 03/07/19 19:15) Unknown reaction Sulfa (Sulfonamide Antibiotics) Allergy (Verified 03/07/19 19:15) Unknown reaction Past Medical History - Past Medical History Cardiac Medical History: Denies: Hx Coronary Artery Disease, Hx Heart Attack, Hx Hypertension Pulmonary Medical History: Denies: Hx Asthma, Hx Bronchitis, Hx COPD, Hx Pneumonia Neurological Medical History: Denies: Hx Cerebrovascular Accident, Hx Seizures GI Medical History: Reports: Hx Gastroesophageal Reflux Disease. Denies: Hx Hepatitis, Hx Hiatal Hernia, Hx Ulcer Musculoskeltal Medical History: Denies Hx Arthritis Infectious Medical History: Denies: Hx Hepatitis Past Surgical History: Reports: Hx Gynecologic Surgery - D&C x 2. Denies: Hx Mastectomy, Hx Open Heart Surgery, Hx Pacemaker - Immunizations Hx Diphtheria, Pertussis, Tetanus Vaccination: Yes Physical Exam - Vital signs Vitals: Temp Pulse Resp BP Pulse Ox 98.6 F 97 18 139/88 H 100 03/07/19 19:27 03/07/19 19:27 03/07/19 19:27 03/07/19 19:27 03/07/19 19:27 Course - Vital Signs Vital signs: Temp Pulse Resp BP Pulse Ox 98.6 F 97 18 139/88 H 100 03/07/19 19:27 03/07/19 19:27 03/07/19 19:27 03/07/19 19:27 03/07/19 19:27 Doctor's Discharge - Discharge Referrals: MAGO PALENCIA PA-C [Primary Care Provider] - Follow up as needed
[2019-03-07 20:39] LABS: ABSOLUTE BASOPHILS # (AUTO) 0.1 10^3/uL (0.0-0.2); ABSOLUTE EOSINOPHILS # (AUTO) 0.2 10^3/uL (0.0-0.6); ABSOLUTE LYMPHOCYTES (AUTO) 3.5 10^3/uL (0.5-4.7); ABSOLUTE MONOCYTES (AUTO) 0.9 10^3/uL (0.1-1.4); ABSOLUTE NEUT (AUTO) 6.4 10^3/uL (1.7-8.2); AMORPHOUS SEDIMENT,URINE TRACE /HPF; APPEARANCE,URINE SLIGHTLY-CLOUDY; BASOPHILS % (AUTO) 0.6 % (0-2); BILIRUBIN,URINE NEGATIVE (NEGATIVE); COLOR,URINE STRAW; GLUCOSE, URINE NEGATIVE (NEGATIVE); HEMATOCRIT 41.3 % (36.0-47.0); HEMOGLOBIN 13.4 g/dL (12.0-15.5); KETONES,URINE NEGATIVE (NEGATIVE); LEUKOCYTE ESTERASE,URINE LARGE (NEGATIVE); LYMPHOCYTES % (AUTO) 31.7 % (13-45); MEAN CORPUSCULAR HEMOGLOBIN 27.9 pg (27.0-33.4); MEAN CORPUSCULAR HGB CONC 32.4 g/dL (32.0-36.0); MEAN CORPUSCULAR VOLUME 86 fl (80-97); NITRITE,URINE NEGATIVE (NEGATIVE); PLATELET COUNT 332 10^3/uL (150-450); PROTEIN,URINE NEGATIVE (NEGATIVE); RED CELL DISTRIBUTION WIDTH 14.3 % (11.5-14.0); SEGMENTED NEUTROPHILS % (AUTO) 57.7 % (42-78); TOTAL CELLS COUNTED % (AUTO) 100 %; URINE SPECIFIC GRAVITY 1.008; UROBILINOGEN,URINE NEGATIVE mg/dL (<2.0); WHITE BLOOD COUNT 11.1 10^3/uL (4.0-10.5)
[2019-03-07 20:54] LABS: ALBUMIN 4.8 g/dL (3.5-5.0); ALKALINE PHOSPHATASE 95 U/L (38-126); ANION GAP 14 (5-19); ASPARTATE AMINO TRANSFERASE 26 U/L (14-36); BILIRUBIN,DIRECT 0.2 mg/dL (0.0-0.4); BILIRUBIN,TOTAL 0.2 mg/dL (0.2-1.3); BLOOD UREA NITROGEN 15 mg/dL (7-20); CALCIUM 9.6 mg/dL (8.4-10.2); CARBON DIOXIDE 26 mmol/L (22-30); CHLORIDE 101 mmol/L (98-107); GLUCOSE 88 mg/dL (75-110); POTASSIUM 3.8 mmol/L (3.6-5.0); TOTAL PROTEIN 8.5 g/dL (6.3-8.2)
[2019-03-07] MEDS ORDERED: ONDANSETRON 4 MG TAB.RAPDIS PO ONE (22:25)
--- NOTE | 2019-03-07 22:25 | ER Document Report ---
ED General - General Chief Complaint: Abdominal Pain Stated Complaint: LOWER BACK/ABDOMINAL PAIN Time Seen by Provider: 03/07/19 20:01 Primary Care Provider: MAGO PAELNCIA PA-C [ALLIED HEALTH PROFESSIONAL] - Follow up as needed Mode of Arrival: Ambulatory Information source: Patient TRAVEL OUTSIDE OF THE [place] IN LAST 30 DAYS: No - HPI Notes: Patient is an otherwise healthy 28-year-old female presenting to the emergency department with multiple complaints. Patient reports she is at least 1 week late on her menses. And thinks she may be . Patient also reports intermittent abdominal pain associated with eating food through the midepigastric region.. She reports intermittent nausea and vomiting. She jah es any fevers or diarrhea. She denies any dysuria or abnormal vaginal discharge. She also reports that she had an umbilical hernia repair done in September by Dr. Henriquez, she states that there is drainage coming from her umbilical site. She has seen the surgeon regarding this and it is stable and unchanged. No fever chills or significant redness around the site. No vaginal discharge or bleeding. No concern for STD. No chest pain or difficulty breathing or cough or congestion. - Related Data Allergies/Adverse Reactions: Penicillins Allergy (Unknown, Verified 03/07/19 19:15) Unknown reaction Sulfa (Sulfonamide Antibiotics) Allergy (Verified 03/07/19 19:15) Unknown reaction Past Medical History - General Information source: Patient - Social History Smoking Status: Unknown if Ever Smoked Frequency of alcohol use: None Drug Abuse: None Lives with: Family Family History: Reviewed & Not Pertinent Patient has suicidal ideation: No Patient has homicidal ideation: No - Past Medical History Cardiac Medical History: Denies: Hx Coronary Artery Disease, Hx Heart Attack, Hx Hypertension Pulmonary Medical History: Denies: Hx Asthma, Hx Bronchitis, Hx COPD, Hx Pneumonia Neurological Medical History: Denies: Hx Cerebrovascular Accident, Hx Seizures Renal/ Medical History: Denies: Hx Peritoneal Dialysis GI Medical History: Reports: Hx Gastroesophageal Reflux Disease. Denies: Hx Hepatitis, Hx Hiatal Hernia, Hx Ulcer Musculoskeletal Medical History: Denies Hx Arthritis Infectious Medical History: Denies: Hx Hepatitis Past Surgical History: Reports: Hx Abdominal Surgery - hernia repair september 2018, Hx Gynecologic Surgery - D&C x 2. Denies: Hx Mastectomy, Hx Open Heart Surgery, Hx Pacemaker - Immunizations Hx Diphtheria, Pertussis, Tetanus Vaccination: Yes Review of Systems - Review of Systems -: Yes All other systems reviewed and negative Physical Exam - Vital signs Vitals: Temp Pulse Resp BP Pulse Ox 98.6 F 97 18 139/88 H 100 03/07/19 19:27 03/07/19 19:27 03/07/19 19:27 03/07/19 19:27 03/07/19 19:27 - Notes Notes: PHYSICAL EXAMINATION: GENERAL: Well-appearing, well-nourished and in no acute distress. HEAD: Atraumatic, normocephalic. EYES: Pupils equal round and reactive to light, extraocular movements intact, conjunctiva are normal. ENT: Nares patent, oropharynx clear without exudates. Moist mucous membranes. NECK: Normal range of motion, supple without lymphadenopathy LUNGS: Breath sounds clear to auscultation bilaterally and equal. No wheezes rales or rhonchi. HEART: Regular rate and rhythm without murmurs ABDOMEN: Soft, nondistended abdomen. No guarding, no rebound. No masses appreciated. Mild tenderness to the midepigastric region. Negative Corado's. Female : deferred Musculoskeletal: Normal range of motion, no pitting or edema. No cyanosis. No CVA tenderness. Minimal vague discomfort posterior pelvis. NEUROLOGICAL: Cranial nerves grossly intact. Normal speech, normal gait. Normal sensory, motor exams PSYCH: Normal mood, normal affect. SKIN: Warm, Dry, normal turgor, no rashes or lesions noted. Course - Re-evaluation Re-evalutation: 03/07/19 22:34 Blood work looked appropriate. test was positive. Based upon patient's last menstrual cycle which was over on 01/25/2019, this would fit for a 4-week . No clinical suggestion for ectopic. No evidence for hepatitis or pancreatitis or significant dehydration. Urine culture is taken and we will treat for UTI and offer medications for nausea and start the patient on ranitidine for reflux. - Vital Signs Vital signs: Temp Pulse Resp BP Pulse Ox 98.6 F 97 18 139/88 H 100 03/07/19 19:27 03/07/19 19:27 03/07/19 19:27 03/07/19 19:27 03/07/19 19:27 - Laboratory Result Diagrams: 03/07/19 20:23 03/07/19 20:23 Laboratory results interpreted by me: 08/15/19 08/15/19 08/15/19 20:23 20:23 20:23 WBC 11.1 H RDW 14.3 H Total Protein 8.5 H Serum HCG, Qual POSITIVE H Ur Leukocyte Esterase 03/07/19 20:23 WBC RDW Total Protein Serum HCG, Qual Ur Leukocyte Esterase LARGE H Discharge - Discharge Clinical Impression: GERD (gastroesophageal reflux disease) Qualifiers: Esophagitis presence: without esophagitis Qualified Code(s): K21.9 - Gastro- esophageal reflux disease without esophagitis Urinary tract infection Qualifiers: Urinary tract infection type: acute cystitis Hematuria presence: without hematuria Qualified Code(s): N30.00 - Acute cystitis without hematuria Gastritis Qualifiers: Gastritis type: unspecified gastritis Chronicity: acute Gastritis bleeding: without bleeding Qualified Code(s): K29.00 - Acute gastritis without bleeding Condition: Stable Disposition: HOME, SELF-CARE Instructions: Urinary Tract Infection ([facility]), Nitrofurantoin ([facility]), Gastritis ([facility]), Abdominal Pain ([facility]) Additional Instructions: Return to the emergency department in case of fever, uncontrolled vomiting or severe pain. Prescriptions: Ondansetron [Zofran Odt 4 mg Tablet] 1 tab PO Q8HP PRN #15 tab.rapdis PRN Reason: For Nausea/Vomiting Nitrofurantoin/Nitrofuran Mac [Macrobid 100 mg Capsule] 1 tab PO BID #14 capsule Ranitidine HCl 150 mg PO BID #60 tablet Forms: Return to Work Referrals: MAGO PALENCIA PA-C [ALLIED HEALTH PROFESSIONAL] - Follow up in 3-5 days
[2019-03-07] MEDS ORDERED: FAMOTIDINE 20 MG TABLET PO ONE (22:26)
[2019-03-07] MEDS ORDERED: NITROFURANTOIN MONOHYD/M-CRYST 100 MG CAPSULE PO ONE (22:27)
[2019-03-07 23:40] VITALS: BP 148/88
== END 2019-03-07 23:33 | disposition home or self-care (01) ==
LOC: ER 19:13
DX: K21.9 Gastro-esophageal reflux disease without esophagitis (principal); K29.00 Acute gastritis without bleeding; N30.00 Acute cystitis without hematuria; R10.13 Epigastric pain; R11.2 Nausea with vomiting, unspecified; Z32.01 Encounter for pregnancy test, result positive; Z98.890 Other specified postprocedural states; Z88.0 Allergy status to penicillin; Z88.2 Allergy status to sulfonamides
CPT/HCPCS: 99284; 36415; 83690; 84703; 85025; 80053; 81001; S0119; J3490; J8499